=== PATIENT | male | born 1935 | race Caucasian/White ===

== ENCOUNTER 2017-01-16 18:07 | Inpatient (IN) | payer MEDICARE, OTHER ==
[~2017-01-16] VITALS: Ht 167.6 cm; Wt 58.1 kg
[2017-01-16 23:22] VITALS: BP 135/92
[2017-01-17] VITALS (7 sets, daily range): BP systolic 122–155; BP diastolic 68–80
[2017-01-17] MEDS ORDERED: Norco 5mg/325mg tab ORAL PRN (01:45)
[2017-01-17] MEDS ORDERED: Tamsulosin 0.4mg cap ORAL ONE (02:15)
[2017-01-17] MEDS: cefTRIAXone 1 GM in D5W 55 ML IVPB SCH (03:02)
[2017-01-17 05:29] LABS: APPEARANCE,URINE CLOUDY; BILIRUBIN, URINE NEGATIVE (NEGATIVE); GLUCOSE, URINE (UA) NEGATIVE (NEGATIVE); KETONES,URINE NEGATIVE (NEGATIVE); LEUKOCYTE ESTERASE ,URINE 2+ (NEGATIVE); NITRITE,URINE NEGATIVE (NEGATIVE); PH,URINE 5 (4.5-8.0); PROTEIN,URINE 4+ (NEGATIVE); UROBILINOGEN,URINE NORMAL MG/DL (0.0-1.0)
[2017-01-17 05:30] LABS: COLOR,URINE YELLOW
[2017-01-17] MEDS: NovoLOG Insulin Flexpen SUBQ SCH ×4 (06:30→20:47)
[2017-01-17 08:00] LABS: BASOPHILS % (AUTO) 0.4 % (0.0-2.0); EOSINOPHILS % (AUTO) 1.2 % (0.0-3.0); HEMATOCRIT 36.9 % (42.0-52.0); HEMOGLOBIN 12.9 G/DL (14.2-18.0); LYMPHOCYTES % (AUTO) 12.7 % (20.0-45.0); MEAN CORPUSCULAR VOLUME 93 FL (80-99); MONOCYTES % (AUTO) 14.1 % (1.0-10.0); NEUTROPHILS % (AUTO) 71.7 % (45.0-75.0); PLATELET COUNT 169 K/UL (150-450); RED BLOOD COUNT 3.96 M/UL (4.70-6.10); RED CELL DISTRIBUTION WIDTH 11.6 % (11.6-14.8); WHITE BLOOD COUNT 7.2 K/UL (4.8-10.8)
[2017-01-17 08:20] LABS: ALANINE AMINOTRANSFERASE 48 U/L (12-78); ALBUMIN 2.9 G/DL (3.4-5.0); ALBUMIN/GLOBULIN RATIO 0.8 (1.0-2.7); ALKALINE PHOSPHATASE 41 U/L (46-116); ANION GAP 8 mmol/L (5-15); ASPARTATE AMINO TRANSFERASE 38 U/L (15-37); BILIRUBIN,TOTAL 0.6 MG/DL (0.2-1.0); BLOOD UREA NITROGEN 64 mg/dL (7-18); CALCIUM 9.1 MG/DL (8.5-10.1); CARBON DIOXIDE 28 MMOL/L (21-32); CHLORIDE 106 MMOL/L (98-107); CREATININE 2.1 MG/DL (0.55-1.30); PHOSPHORUS 3.8 MG/DL (2.5-4.9); POTASSIUM 3.6 MMOL/L (3.5-5.1); SODIUM 142 MMOL/L (136-145)
[2017-01-17] MEDS: Heparin 5000 units/ml inj SUBQ SCH ×2 (09:05→20:48)
[2017-01-17] MEDS ORDERED: Tubing IV Secondary IV ONE (14:45)
--- NOTE | 2017-01-17 18:45 | Consultation ---
DATE OF CONSULTATION: 01/17/2017 UROLOGY CONSULTATION ATTENDING/CONSULTING PHYSICIAN: Art Campa M.D. CHIEF COMPLAINT/HISTORY OF PRESENT ILLNESS: I was asked by Dr. Campa to evaluate this 81-year-old [facility] gentleman regarding a history of urinary retention with obstructive uropathy secondary to the same. Briefly, the patient was seen in an outside facility with a history of urinary retention and no urine output for approximately one week. He had a Gipson catheter placed with 900 mL of urine output. The patient was discharged home and instructed to follow up with the urologist, but has not been able to do so. Apparently, he disconnected his catheter drainage bag and pulled on the catheter a bit at home. After that time, the catheter stopped draining. He returned to the hospital with worsening abdominal pain and pressure. He was seen there and a catheter was found to be occluded. It was removed and there was difficulty replacing the Gipson catheter in the ER, therefore Urology was consulted and a cystoscopy with placement of a wire was done. A new Gipson catheter was then guided over the wire into the bladder with relief of the patient's urinary retention. He was then transferred to [facility] for further management and care. The patient appears to have a history of previous urinary difficulty and might have been on prostate medication in the past. He apparently has not been taking any of this. There is some barrier both secondary to language and his mental status and most of the information is gathered from the chart. PAST MEDICAL HISTORY: 1. Prostatic hypertrophy with urinary retention. 2. Acute renal insufficiency secondary to obstructive uropathy. 3. Gross hematuria. MEDICATIONS: Please see the chart for current medications and administration details. Briefly, the patient is receiving Flomax, finasteride, and ceftriaxone for antibiotic coverage. ALLERGIES: No known drug allergies. SOCIAL HISTORY: Unremarkable for tobacco, alcohol, or drug use. FAMILY HISTORY: Noncontributory. REVIEW OF SYSTEMS: A 12-system review of systems is essentially unremarkable outside of what is described above. PHYSICAL EXAMINATION: GENERAL: The patient is an elderly gentleman, awake, alert, somewhat oriented, and in no obvious distress. HEENT: NC/AT. EOMI. NECK: Supple. Full range of motion. Oropharynx clear. CHEST: Within normal limits. ABDOMEN: Soft, nontender, and nondistended. EXTREMITIES: Warm and well perfused. No cyanosis, clubbing, or edema. BACK: No CVA tenderness to percussion. NEUROLOGIC: Grossly nonfocal. GENITOURINARY: Reveals a circumcised male phallus with a Gipson catheter in place. There is clear yellow urine output. There are bilateral descended testes and cord structures with no masses or tenderness to palpation. LABORATORY DATA: White blood cell count 7.2, hematocrit 36.9, and platelets 169,000. Sodium 142, potassium 3.6, chloride 106, bicarbonate 28, BUN 64, and creatinine 2.1 down from 3 at an outside facility. Glucose 85. LFTs within normal limits. Urinalysis, specific gravity 1.020 and pH 5.0. Dip test is notable for 4+ protein and 5+ occult blood. Microanalysis with too numerous to count white and red blood cells per high-power field and moderate bacteria seen. DIAGNOSTIC IMAGING: CT scan of the abdomen and pelvis done at the outside facility reveals prostatic hypertrophy only. ASSESSMENT AND PLAN: In summary, the patient is an 81-year-old gentleman with a history of presumed benign prostatic hypertrophy and bladder outlet obstruction with problems urinating in the past. He presented to an outside facility with urinary retention and a Gipson was placed. He then dislodged his Gipson catheter likely into his urethra and the catheter stopped draining. It was removed back at the same facility, but staff had a problem passing the catheter again and Urology was called to perform cystoscopy and placement of catheter and the wire guidance. He was eventually transferred here. Physical exam reveals a Gipson catheter in place with clear yellow urine output. Laboratory data is notable for evidence of microhematuria and possible urinary tract infection. Creatinine, which had peaked at 3 prior to admission has come down to 2. I will attempt to talk to this patient's family and see what we can do to arrange for further follow up and care for him. He should be continued on Flomax and finasteride and if hematuria recurs, his heparin should be held. He should also to be continued on ceftriaxone until urine culture is finalized, at which point, he can be transferred to oral medications encompassing 7 to 10 days of total therapy. I will see the patient back in the office to further manage his benign prostatic hypertrophy and retention. Thank you for allowing me to participate in the care of this nice gentleman. Please do not hesitate to contact me with any questions that you may further have regarding his care. I will be happy to see him with you as needed. Ciaran De La Rosa M.D. DR: ABDIRAHMAN JOB#: [id number] CC:
--- NOTE | 2017-01-17 18:56 | History & Physical ---
History and Physical History & Physicial Dictated for Int Med-Dr Campa no. [id number]. MONAE GARCIA Jan 17, 2017 18:56
--- NOTE | 2017-01-17 18:56 | History & Physical ---
History and Physical History & Physicial Dictated for Int Med-Dr Campa no. [id number]. MONAE GARCIA Jan 17, 2017 18:56
--- NOTE | 2017-01-17 18:56 | History & Physical ---
History and Physical History & Physicial Dictated for Int Med-Dr Campa no. [id number]. MONAE GARCIA Jan 17, 2017 18:56
[2017-01-17] MEDS: Tamsulosin 0.4mg cap ORAL SCH (20:44)
--- NOTE | 2017-01-17 21:52 | Consultation ---
History of Present Illness General Date patient seen: Jan 17, 2017 Chief Complaint: Abdominal pain urinary retention Referring physician: Dr. Holt Reason for Consultation: Abdominal pain Inability to urinate Present Illness HPI 81 yo gentleman with pmhx DM II, BPH and denies all other past medical history presents with complaint of not being able to urinate since yesterday and sudden pelvic and abdominal pains. The patient was evaluated at [facility] emergency room approximately a week ago. The patient had a Cano catheter placed with significant urine output. No infection was found. I was asked to consult on this case from a internal medicine point of view, at this time recommendations include insertion of cano to evacuate bladder and renal ultrasound to rule out hydronephrosis. Allergies: Coded Allergies: No Known Allergies (Unverified , 01/17/17) Medication History Scheduled Cephalexin (Cephalexin), 500 MG ORAL BID Finasteride (Finasteride), 5 MG ORAL DAILY Tamsulosin HCl (Flomax), 0.4 MG ORAL BEDTIME Patient History Healthcare decision maker Resuscitation status Full Code Advanced Directive on File Past Medical/Surgical History Past Medical/Surgical History: (1) Urinary Retention (2) Benign prostatic hyperplasia (3) Urinary retention (4) ATN (acute tubular necrosis) (5) Intractable abdominal pain (6) BPH (benign prostatic hyperplasia) (7) UTI (urinary tract infection) Review of Systems Constitutional: Reports: malaise, weakness Gastrointestinal: Reports: abdominal pain Genitourinary: Reports: retention, urgency Physical Exam General Appearance: moderate distress Lines, tubes and drains: peripheral HEENT: normocephalic, atraumatic, PERRL Neck: non-tender, normal alignment, supple, normal inspection Respiratory/Chest: chest wall non-tender, normal breath sounds, no respiratory distress Breasts: no masses Cardiovascular/Chest: normal peripheral pulses, normal rate, regular rhythm, no JVD Abdomen: normal bowel sounds, non tender, soft, no organomegaly, no mass Genitourinary/Rectal: normal genital exam, normal rectal exam Extremities: normal range of motion, non-tender, normal inspection, no calf tenderness Skin Exam: normal pigmentation, warm/dry 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, no motor/sensory deficits Last 24 Hour Vital Signs Date Time Temp Pulse Resp B/P (MAP) Pulse Ox O2 Delivery O2 Flow Rate FiO2 01/17/17 19:21 99.5 80 18 140/70 95 Room Air 01/17/17 19:17 96.4 84 20 122/80 95 Room Air 01/17/17 15:55 98.6 73 18 133/77 98 Room Air 01/17/17 12:00 98.4 77 18 128/75 98 Room Air 01/17/17 08:00 97.8 90 18 145/73 100 Room Air 01/17/17 03:18 97.6 80 19 125/68 97 Room Air 01/16/17 23:22 97.6 89 18 135/92 95 Room Air Intake and Output 01/17/17 01/18/17 19:00 07:00 Intake Total 990 ml Output Total 900 ml Balance 90 ml Intake Oral 840 ml IV Total 150 ml Output Urine Total 900 ml Laboratory Tests Test 01/17/17 04:15 01/17/17 06:00 Urine Color Yellow Urine Appearance Cloudy Urine pH 5 (4.5-8.0) Urine Specific [place] 1.020 (1.005-1.035) Urine Protein 4+ (NEGATIVE) H Urine Glucose (UA) Negative (NEGATIVE) Urine Ketones Negative (NEGATIVE) Urine Occult Blood 5+ (NEGATIVE) H Urine Nitrite Negative (NEGATIVE) Urine Bilirubin Negative (NEGATIVE) Urine Urobilinogen Normal MG/DL (0.0-1.0) Urine Leukocyte Esterase 2+ (NEGATIVE) H Urine RBC Tntc /HPF (0 - 0) H Urine WBC Tntc /HPF (0 - 0) H Urine Squamous Epithelial Cells Few /LPF (NONE/OCC) Urine Amorphous Sediment Moderate /LPF (NONE) H Urine Bacteria Moderate /HPF (NONE) H White Blood Count 7.2 K/UL (4.8-10.8) Red Blood Count 3.96 M/UL (4.70-6.10) L Hemoglobin 12.9 G/DL (14.2-18.0) L Hematocrit 36.9 % (42.0-52.0) L Mean Corpuscular Volume 93 FL (80-99) Mean Corpuscular Hemoglobin 32.6 PG (27.0-31.0) H Mean Corpuscular Hemoglobin Concent 34.9 G/DL (32.0-36.0) Red Cell Distribution Width 11.6 % (11.6-14.8) Platelet Count 169 K/UL (150-450) Mean Platelet Volume 8.2 FL (6.5-10.1) Neutrophils (%) (Auto) 71.7 % (45.0-75.0) Lymphocytes (%) (Auto) 12.7 % (20.0-45.0) L Monocytes (%) (Auto) 14.1 % (1.0-10.0) H Eosinophils (%) (Auto) 1.2 % (0.0-3.0) Basophils (%) (Auto) 0.4 % (0.0-2.0) Sodium Level 142 MMOL/L (136-145) Potassium Level 3.6 MMOL/L (3.5-5.1) Chloride Level 106 MMOL/L (98-107) Carbon Dioxide Level 28 MMOL/L (21-32) Anion Gap 8 mmol/L (5-15) Blood Urea Nitrogen 64 mg/dL (7-18) H Creatinine 2.1 MG/DL (0.55-1.30) H Estimat Glomerular Filtration Rate mL/min (>60) Glucose Level 85 MG/DL (74-106) Hemoglobin A1c 6.7 % (4.3-6.0) H Calcium Level 9.1 MG/DL (8.5-10.1) Phosphorus Level 3.8 MG/DL (2.5-4.9) Magnesium Level 2.0 MG/DL (1.8-2.4) Total Bilirubin 0.6 MG/DL (0.2-1.0) Aspartate Amino Transf (AST/SGOT) 38 U/L (15-37) H Alanine Aminotransferase (ALT/SGPT) 48 U/L (12-78) Alkaline Phosphatase 41 U/L (46-116) L Total Protein 6.7 G/DL (6.4-8.2) Albumin 2.9 G/DL (3.4-5.0) L Globulin 3.8 g/dL Albumin/Globulin Ratio 0.8 (1.0-2.7) L Height (Feet): 5 Height (Inches): 6.00 Weight (Pounds): 128 Medications Current Medications Medications (Trade) Dose Ordered Sig/Sammy Route PRN Reason Start Time Stop Time Status Last Admin Dose Admin Acetaminophen (Tylenol) 650 mg Q4H PRN ORAL Mild Pain/Temp > 100.5 01/17/17 01:45 02/16/17 01:44 Acetaminophen/ Hydrocodone Bitart ([place] 5/325) 1 tab Q6H PRN ORAL For Pain 01/17/17 01:45 01/24/17 01:44 Ceftriaxone Sodium 1 gm/ Dextrose 55 ml @ 110 mls/hr Q24H IVPB 01/17/17 03:00 01/24/17 02:59 01/17/17 03:02 Dextrose (Dextrose 50%) STAT PRN IV Hypoglycemia 01/17/17 01:45 02/16/17 01:44 Finasteride (Proscar) 5 mg DAILY ORAL 01/17/17 09:00 02/16/17 08:59 01/17/17 09:05 Heparin Sodium (Porcine) (Heparin 5000 units/ml) 5,000 units EVERY 12 HOURS SUBQ 01/17/17 09:00 02/16/17 08:59 01/17/17 20:48 Insulin Aspart (NovoLOG) BEFORE MEALS AND HS SUBQ 01/17/17 06:30 02/16/17 06:29 01/17/17 20:47 Sodium Chloride 1,000 ml @ 75 mls/hr [id number] IV 01/17/17 02:30 02/16/17 02:29 01/17/17 16:06 Tamsulosin HCl (Flomax) 0.4 mg BEDTIME ORAL 01/17/17 21:00 02/16/17 20:59 01/17/17 20:44 Assessment/Plan Status: stable, progressing Assessment/Plan Acute abdominal pain Urinary retention History of recent cano insertion Diabetes Mellitus II Benign prostatic hyperplasia Plan Pain management Renal ultra sound rule out hydronephrosis Cano insertion to evacuate bladder Insulin per sliding scale for hyperglycemia MIC FOWLER Jan 17, 2017 21:52
--- NOTE | 2017-01-17 23:00 | History and Physical Report ---
DATE OF ADMISSION: 01/16/2017 CHIEF COMPLAINT: The patient is an 81-year-old male, who presents with chief complaint of abdominal pain and unable to urinate. HISTORY OF PRESENT ILLNESS: The patient was evaluated at [facility] emergency room approximately a week ago. The patient had a Gipson catheter placed with significant urine output. No infection was found. The patient returned to [facility] emergency room on 01/16/2017. The patient was complaining of abdominal pain and unable to urinate. A Gipson was inserted with difficulty. The patient has significant urine output. Leukocyte esterase is positive. The patient is transferred to [facility] for insurance purposes. The patient is admitted with urinary retention, benign prostatic hypertrophy, and outlet obstruction. The patient denies urinary tract infection. PAST MEDICAL HISTORY: Significant for: 1. Diabetes type 2. 2. Benign prostatic hypertrophy. PAST SURGICAL HISTORY: The patient denies. CURRENT MEDICATIONS: The patient denies. ALLERGIES: No known drug allergies. SOCIAL HISTORY: The patient is . The patient denies tobacco or alcohol use. REVIEW OF SYSTEMS: CONSTITUTIONAL: The patient denies weight loss or weight gain. The patient denies fevers or chills. HEENT: The patient denies ear or throat pain. The patient denies headache. CARDIOVASCULAR: The patient denies palpitations or chest pain. CHEST: The patient denies wheezes or shortness of breath. ABDOMEN: The patient complains of abdominal pain as above. The patient denies nausea, vomiting, diarrhea, or constipation. GENITOURINARY: The patient complains of urinary retention as above. The patient denies dysuria or increased frequency of urination. NEUROMUSCULAR: The patient denies seizures or generalized weakness. PHYSICAL EXAMINATION: VITAL SIGNS: Temperature 97.6, respirations 18, pulse 89, and blood pressure 135/92. GENERAL: The patient is a well-developed, well-nourished white male, in no apparent distress. HEENT: Eyes, pupils are equal and responsive to light and accommodation. Extraocular movements are intact. NECK: Supple without lymphadenopathy. CHEST: Lungs are clear to auscultation bilaterally without wheezes or rales. CARDIOVASCULAR: Regular rhythm and rate. S1 and S2 are normal without murmurs, rubs, or gallops. ABDOMEN: Soft, nontender, and nondistended. Positive bowel sounds. No evidence of hepatosplenomegaly. Currently, no rebound or guarding noted. EXTREMITIES: Negative for clubbing, cyanosis, or edema. RECTAL: Refused. GENITAL: Refused. NEUROLOGIC: Cranial nerves II through XII are grossly intact without focal deficits. Motor strength is 5/5 bilaterally. Deep tendon reflexes are 2+ plantar. LABORATORY STUDIES: WBC 15.2, hemoglobin 15.0, hematocrit 42.8, and platelets 228,000. Sodium 136, potassium 3.7, chloride 96, CO2 25, BUN elevated at 63, and creatinine elevated at 3.16. Urinalysis showed positive leukocyte esterase. WBCs were greater than 100 per high-power field, RBCs were greater than 25 per high-power field. ASSESSMENT: This is an 81-year-old white male with: 1. Abdominal pain. 2. Urinary outlet obstruction. 3. Diabetes type 2. 4. Renal failure. 5. Benign prostatic hypertrophy. TREATMENT: 1. Abdominal pain/urinary outlet obstruction. Urology consultation has been obtained with Dr. De La Rosa. We will follow recommendations of Urology. A Gipson catheter is in place. The urine culture is pending. The patient has been placed empirically on ceftriaxone. Await culture and sensitivity. 2. Diabetes type 2. The patient was admitted. Off antihyperglycemic medication. NovoLog sliding scale has been instituted. 3. Renal failure. Urology consultation has been obtained with Dr. De La Rosa. This may be secondary to urinary outlet obstruction. A Nephrology consultation has been obtained with Dr. Qureshi. 4. Benign prostatic hypertrophy as above. Urology consultation has been obtained with Dr. De La Rosa. The patient has been started on Flomax and Proscar. Easton Holt M.D. DR: PRAVIN JOB#: [id number] CC:
[2017-01-18] VITALS (7 sets, daily range): BP systolic 112–140; BP diastolic 60–82
[2017-01-18] MEDS: cefTRIAXone 1 GM in D5W 55 ML IVPB SCH (03:28)
[2017-01-18] MEDS: NovoLOG Insulin Flexpen SUBQ SCH ×4 (06:23→21:24)
[2017-01-18 07:03] LABS: BASOPHILS % (AUTO) 0.9 % (0.0-2.0); EOSINOPHILS % (AUTO) 3.5 % (0.0-3.0); HEMATOCRIT 33.1 % (42.0-52.0); LYMPHOCYTES % (AUTO) 26.6 % (20.0-45.0); MEAN CORPUSCULAR VOLUME 92 FL (80-99); NEUTROPHILS % (AUTO) 52.1 % (45.0-75.0); PLATELET COUNT 165 K/UL (150-450); RED BLOOD COUNT 3.59 M/UL (4.70-6.10); RED CELL DISTRIBUTION WIDTH 11.1 % (11.6-14.8); WHITE BLOOD COUNT 4.7 K/UL (4.8-10.8)
[2017-01-18 07:04] LABS: ANION GAP 9 mmol/L (5-15); BLOOD UREA NITROGEN 45 mg/dL (7-18); CALCIUM 8.7 MG/DL (8.5-10.1); CARBON DIOXIDE 26 MMOL/L (21-32); CHLORIDE 110 MMOL/L (98-107); CREATININE 1.3 MG/DL (0.55-1.30); POTASSIUM 3.4 MMOL/L (3.5-5.1); SODIUM 145 MMOL/L (136-145)
[2017-01-18] MEDS: Heparin 5000 units/ml inj SUBQ SCH ×2 (08:32→21:25)
--- NOTE | 2017-01-18 10:42 | Diagnostic Imaging Report ---
Indication: Abnormal renal function tests, difficulty urinating Technique: Grayscale and duplex images of the kidneys, retroperitoneum, and bladder were obtained. Comparison:None Findings: Right kidney measures 8.8 cm in length. Left kidney measures 9.7 cm in length. Both kidneys demonstrate normal echogenicity. No hydronephrosis. The right kidney demonstrates a 2.8 cm interpolar region cyst. Normal inferior vena cava. Bladder is empty, contains a Gipson catheter. Impression: Negative for hydronephrosis Of the bladder, containing a Gipson catheter 2.8 cm interpolar region cyst in the right kidney.
--- NOTE | 2017-01-18 16:36 | Pulmonology Progress Note ---
Assessment/Plan Problems: (1) ATN (acute tubular necrosis) (2) Intractable abdominal pain (3) Benign prostatic hyperplasia (4) Urinary retention Assessment/Plan improving IV fluids check electrolytes f/u urology recommendations Subjective ROS Limited/Unobtainable: No Constitutional: Reports: no symptoms HEENT: Repors: no symptoms Respiratory: Reports: no symptoms Allergies: Coded Allergies: No Known Allergies (Unverified , 01/17/17) Objective Last 24 Hour Vital Signs Date Time Temp Pulse Resp B/P (MAP) Pulse Ox O2 Delivery O2 Flow Rate FiO2 01/18/17 16:11 98.0 70 20 125/68 97 Room Air 01/18/17 12:39 97.7 74 20 123/71 97 Room Air 01/18/17 08:15 97.5 72 20 120/62 96 Room Air 01/18/17 03:27 97.9 66 19 138/72 95 Room Air 01/18/17 03:17 97.0 91 20 140/82 97 Room Air 01/17/17 23:21 98.2 80 18 155/75 95 Room Air 01/17/17 19:21 99.5 80 18 140/70 95 Room Air 01/17/17 19:17 96.4 84 20 122/80 95 Room Air Intake and Output 01/18/17 01/19/17 19:00 07:00 Intake Total 535 ml Balance 535 ml Intake Oral 460 ml IV Total 75 ml General Appearance: WD/WN HEENT: normocephalic, atraumatic Respiratory/Chest: chest wall non-tender, lungs clear Cardiovascular: normal peripheral pulses, normal rate Abdomen: normal bowel sounds, no organomegaly Genitourinary: normal external genitalia Skin: no rash 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, 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 Microbiology Date/Time Source Procedure Growth Status 01/17/17 04:15 Indwelling Cath Urine Culture - Preliminary NO GROWTH Resulted Laboratory Tests 01/18/17 05:20: White Blood Count 4.7L, Red Blood Count 3.59L, Hemoglobin 12.0L, Hematocrit 33.1L, Mean Corpuscular Volume 92, Mean Corpuscular Hemoglobin 33.5H, Mean Corpuscular Hemoglobin Concent 36.3H, Red Cell Distribution Width 11.1L, Platelet Count 165, Mean Platelet Volume 7.7, Neutrophils (%) (Auto) 52.1, Lymphocytes (%) (Auto) 26.6, Monocytes (%) (Auto) 17.0H, Eosinophils (%) (Auto) 3.5H, Basophils (%) (Auto) 0.9, Sodium Level 145, Potassium Level 3.4L, Chloride Level 110H, Carbon Dioxide Level 26, Anion Gap 9, Blood Urea Nitrogen 45H, Creatinine 1.3, Estimat Glomerular Filtration Rate , Glucose Level 94, Calcium Level 8.7 Current Medications Medications (Trade) Dose Ordered Sig/Sammy Route PRN Reason Start Time Stop Time Status Last Admin Dose Admin Acetaminophen (Tylenol) 650 mg Q4H PRN ORAL Mild Pain/Temp > 100.5 01/17/17 01:45 02/16/17 01:44 Acetaminophen/ Hydrocodone Bitart ([place] 5/325) 1 tab Q6H PRN ORAL For Pain 01/17/17 01:45 01/24/17 01:44 Ceftriaxone Sodium 1 gm/ Dextrose 55 ml @ 110 mls/hr Q24H IVPB 01/17/17 03:00 01/24/17 02:59 01/18/17 03:28 Dextrose (Dextrose 50%) STAT PRN IV Hypoglycemia 01/17/17 01:45 02/16/17 01:44 Finasteride (Proscar) 5 mg DAILY ORAL 01/17/17 09:00 02/16/17 08:59 01/18/17 08:25 Heparin Sodium (Porcine) (Heparin 5000 units/ml) 5,000 units EVERY 12 HOURS SUBQ 01/17/17 09:00 02/16/17 08:59 01/18/17 08:32 Insulin Aspart (NovoLOG) BEFORE MEALS AND HS SUBQ 01/17/17 06:30 02/16/17 06:29 01/18/17 16:29 Sodium Chloride 1,000 ml @ 75 mls/hr [id number] IV 01/17/17 02:30 02/16/17 02:29 01/18/17 10:43 Tamsulosin HCl (Flomax) 0.4 mg BEDTIME ORAL 01/17/17 21:00 02/16/17 20:59 01/17/17 20:44 MIC FOWLER Jan 18, 2017 16:36
--- NOTE | 2017-01-18 16:36 | Pulmonology Progress Note ---
Assessment/Plan Problems: (1) ATN (acute tubular necrosis) (2) Intractable abdominal pain (3) Benign prostatic hyperplasia (4) Urinary retention Assessment/Plan improving IV fluids check electrolytes f/u urology recommendations Subjective ROS Limited/Unobtainable: No Constitutional: Reports: no symptoms HEENT: Repors: no symptoms Respiratory: Reports: no symptoms Allergies: Coded Allergies: No Known Allergies (Unverified , 01/17/17) Objective Last 24 Hour Vital Signs Date Time Temp Pulse Resp B/P (MAP) Pulse Ox O2 Delivery O2 Flow Rate FiO2 01/18/17 16:11 98.0 70 20 125/68 97 Room Air 01/18/17 12:39 97.7 74 20 123/71 97 Room Air 01/18/17 08:15 97.5 72 20 120/62 96 Room Air 01/18/17 03:27 97.9 66 19 138/72 95 Room Air 01/18/17 03:17 97.0 91 20 140/82 97 Room Air 01/17/17 23:21 98.2 80 18 155/75 95 Room Air 01/17/17 19:21 99.5 80 18 140/70 95 Room Air 01/17/17 19:17 96.4 84 20 122/80 95 Room Air Intake and Output 01/18/17 01/19/17 19:00 07:00 Intake Total 535 ml Balance 535 ml Intake Oral 460 ml IV Total 75 ml General Appearance: WD/WN HEENT: normocephalic, atraumatic Respiratory/Chest: chest wall non-tender, lungs clear Cardiovascular: normal peripheral pulses, normal rate Abdomen: normal bowel sounds, no organomegaly Genitourinary: normal external genitalia Skin: no rash 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, 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 Microbiology Date/Time Source Procedure Growth Status 01/17/17 04:15 Indwelling Cath Urine Culture - Preliminary NO GROWTH Resulted Laboratory Tests 01/18/17 05:20: White Blood Count 4.7L, Red Blood Count 3.59L, Hemoglobin 12.0L, Hematocrit 33.1L, Mean Corpuscular Volume 92, Mean Corpuscular Hemoglobin 33.5H, Mean Corpuscular Hemoglobin Concent 36.3H, Red Cell Distribution Width 11.1L, Platelet Count 165, Mean Platelet Volume 7.7, Neutrophils (%) (Auto) 52.1, Lymphocytes (%) (Auto) 26.6, Monocytes (%) (Auto) 17.0H, Eosinophils (%) (Auto) 3.5H, Basophils (%) (Auto) 0.9, Sodium Level 145, Potassium Level 3.4L, Chloride Level 110H, Carbon Dioxide Level 26, Anion Gap 9, Blood Urea Nitrogen 45H, Creatinine 1.3, Estimat Glomerular Filtration Rate , Glucose Level 94, Calcium Level 8.7 Current Medications Medications (Trade) Dose Ordered Sig/Sammy Route PRN Reason Start Time Stop Time Status Last Admin Dose Admin Acetaminophen (Tylenol) 650 mg Q4H PRN ORAL Mild Pain/Temp > 100.5 01/17/17 01:45 02/16/17 01:44 Acetaminophen/ Hydrocodone Bitart ([place] 5/325) 1 tab Q6H PRN ORAL For Pain 01/17/17 01:45 01/24/17 01:44 Ceftriaxone Sodium 1 gm/ Dextrose 55 ml @ 110 mls/hr Q24H IVPB 01/17/17 03:00 01/24/17 02:59 01/18/17 03:28 Dextrose (Dextrose 50%) STAT PRN IV Hypoglycemia 01/17/17 01:45 02/16/17 01:44 Finasteride (Proscar) 5 mg DAILY ORAL 01/17/17 09:00 02/16/17 08:59 01/18/17 08:25 Heparin Sodium (Porcine) (Heparin 5000 units/ml) 5,000 units EVERY 12 HOURS SUBQ 01/17/17 09:00 02/16/17 08:59 01/18/17 08:32 Insulin Aspart (NovoLOG) BEFORE MEALS AND HS SUBQ 01/17/17 06:30 02/16/17 06:29 01/18/17 16:29 Sodium Chloride 1,000 ml @ 75 mls/hr [id number] IV 01/17/17 02:30 02/16/17 02:29 01/18/17 10:43 Tamsulosin HCl (Flomax) 0.4 mg BEDTIME ORAL 01/17/17 21:00 02/16/17 20:59 01/17/17 20:44 MIC FOWLER Jan 18, 2017 16:36
--- NOTE | 2017-01-18 16:36 | Pulmonology Progress Note ---
Assessment/Plan Problems: (1) ATN (acute tubular necrosis) (2) Intractable abdominal pain (3) Benign prostatic hyperplasia (4) Urinary retention Assessment/Plan improving IV fluids check electrolytes f/u urology recommendations Subjective ROS Limited/Unobtainable: No Constitutional: Reports: no symptoms HEENT: Repors: no symptoms Respiratory: Reports: no symptoms Allergies: Coded Allergies: No Known Allergies (Unverified , 01/17/17) Objective Last 24 Hour Vital Signs Date Time Temp Pulse Resp B/P (MAP) Pulse Ox O2 Delivery O2 Flow Rate FiO2 01/18/17 16:11 98.0 70 20 125/68 97 Room Air 01/18/17 12:39 97.7 74 20 123/71 97 Room Air 01/18/17 08:15 97.5 72 20 120/62 96 Room Air 01/18/17 03:27 97.9 66 19 138/72 95 Room Air 01/18/17 03:17 97.0 91 20 140/82 97 Room Air 01/17/17 23:21 98.2 80 18 155/75 95 Room Air 01/17/17 19:21 99.5 80 18 140/70 95 Room Air 01/17/17 19:17 96.4 84 20 122/80 95 Room Air Intake and Output 01/18/17 01/19/17 19:00 07:00 Intake Total 535 ml Balance 535 ml Intake Oral 460 ml IV Total 75 ml General Appearance: WD/WN HEENT: normocephalic, atraumatic Respiratory/Chest: chest wall non-tender, lungs clear Cardiovascular: normal peripheral pulses, normal rate Abdomen: normal bowel sounds, no organomegaly Genitourinary: normal external genitalia Skin: no rash 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, 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 Microbiology Date/Time Source Procedure Growth Status 01/17/17 04:15 Indwelling Cath Urine Culture - Preliminary NO GROWTH Resulted Laboratory Tests 01/18/17 05:20: White Blood Count 4.7L, Red Blood Count 3.59L, Hemoglobin 12.0L, Hematocrit 33.1L, Mean Corpuscular Volume 92, Mean Corpuscular Hemoglobin 33.5H, Mean Corpuscular Hemoglobin Concent 36.3H, Red Cell Distribution Width 11.1L, Platelet Count 165, Mean Platelet Volume 7.7, Neutrophils (%) (Auto) 52.1, Lymphocytes (%) (Auto) 26.6, Monocytes (%) (Auto) 17.0H, Eosinophils (%) (Auto) 3.5H, Basophils (%) (Auto) 0.9, Sodium Level 145, Potassium Level 3.4L, Chloride Level 110H, Carbon Dioxide Level 26, Anion Gap 9, Blood Urea Nitrogen 45H, Creatinine 1.3, Estimat Glomerular Filtration Rate , Glucose Level 94, Calcium Level 8.7 Current Medications Medications (Trade) Dose Ordered Sig/Sammy Route PRN Reason Start Time Stop Time Status Last Admin Dose Admin Acetaminophen (Tylenol) 650 mg Q4H PRN ORAL Mild Pain/Temp > 100.5 01/17/17 01:45 02/16/17 01:44 Acetaminophen/ Hydrocodone Bitart ([place] 5/325) 1 tab Q6H PRN ORAL For Pain 01/17/17 01:45 01/24/17 01:44 Ceftriaxone Sodium 1 gm/ Dextrose 55 ml @ 110 mls/hr Q24H IVPB 01/17/17 03:00 01/24/17 02:59 01/18/17 03:28 Dextrose (Dextrose 50%) STAT PRN IV Hypoglycemia 01/17/17 01:45 02/16/17 01:44 Finasteride (Proscar) 5 mg DAILY ORAL 01/17/17 09:00 02/16/17 08:59 01/18/17 08:25 Heparin Sodium (Porcine) (Heparin 5000 units/ml) 5,000 units EVERY 12 HOURS SUBQ 01/17/17 09:00 02/16/17 08:59 01/18/17 08:32 Insulin Aspart (NovoLOG) BEFORE MEALS AND HS SUBQ 01/17/17 06:30 02/16/17 06:29 01/18/17 16:29 Sodium Chloride 1,000 ml @ 75 mls/hr [id number] IV 01/17/17 02:30 02/16/17 02:29 01/18/17 10:43 Tamsulosin HCl (Flomax) 0.4 mg BEDTIME ORAL 01/17/17 21:00 02/16/17 20:59 01/17/17 20:44 MIC FOWLER Jan 18, 2017 16:36
--- NOTE | 2017-01-18 17:54 | Internal Med Progress Note ---
Subjective Date of Service: Jan 18, 2017 Physician Name Monae Garcia Attending Physician Art Campa MD Current Medications Medications (Trade) Dose Ordered Sig/Sammy Route PRN Reason Start Time Stop Time Status Last Admin Dose Admin Acetaminophen (Tylenol) 650 mg Q4H PRN ORAL Mild Pain/Temp > 100.5 01/17/17 01:45 02/16/17 01:44 Acetaminophen/ Hydrocodone Bitart ([place] 5/325) 1 tab Q6H PRN ORAL For Pain 01/17/17 01:45 01/24/17 01:44 Ceftriaxone Sodium 1 gm/ Dextrose 55 ml @ 110 mls/hr Q24H IVPB 01/17/17 03:00 01/24/17 02:59 01/18/17 03:28 Dextrose (Dextrose 50%) STAT PRN IV Hypoglycemia 01/17/17 01:45 02/16/17 01:44 Finasteride (Proscar) 5 mg DAILY ORAL 01/17/17 09:00 02/16/17 08:59 01/18/17 08:25 Heparin Sodium (Porcine) (Heparin 5000 units/ml) 5,000 units EVERY 12 HOURS SUBQ 01/17/17 09:00 02/16/17 08:59 01/18/17 08:32 Insulin Aspart (NovoLOG) BEFORE MEALS AND HS SUBQ 01/17/17 06:30 02/16/17 06:29 01/18/17 16:29 Sodium Chloride 1,000 ml @ 75 mls/hr [id number] IV 01/17/17 02:30 02/16/17 02:29 01/18/17 10:43 Tamsulosin HCl (Flomax) 0.4 mg BEDTIME ORAL 01/17/17 21:00 02/16/17 20:59 01/17/17 20:44 Allergies: Coded Allergies: No Known Allergies (Unverified , 01/17/17) ROS Limited/Unobtainable: Yes Subjective 81 YO M admitted woth obstructive uropathy. Cover for Int Daniel-Dr Campa Objective Last Vital Signs Date Time Temp Pulse Resp B/P (MAP) Pulse Ox O2 Delivery O2 Flow Rate FiO2 01/18/17 16:11 98.0 70 20 125/68 97 Room Air General Appearance: WD/WN, no apparent distress, alert EENT: PERRL/EOMI, normal ENT inspection Neck: non-tender, normal alignment, supple, normal inspection Cardiovascular: normal peripheral pulses, normal rate, regular rhythm, no gallop/murmur, no JVD Respiratory/Chest: chest wall non-tender, lungs clear, normal breath sounds, no respiratory distress, no accessory muscle use Abdomen: normal bowel sounds, non tender, soft, no organomegaly, no mass, abnormal bowel sounds Extremities: normal range of motion 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, no motor/sensory deficits Skin: normal pigmentation Laboratory Tests Test 01/18/17 05:20 White Blood Count 4.7 K/UL (4.8-10.8) L Red Blood Count 3.59 M/UL (4.70-6.10) L Hemoglobin 12.0 G/DL (14.2-18.0) L Hematocrit 33.1 % (42.0-52.0) L Mean Corpuscular Volume 92 FL (80-99) Mean Corpuscular Hemoglobin 33.5 PG (27.0-31.0) H Mean Corpuscular Hemoglobin Concent 36.3 G/DL (32.0-36.0) H Red Cell Distribution Width 11.1 % (11.6-14.8) L Platelet Count 165 K/UL (150-450) Mean Platelet Volume 7.7 FL (6.5-10.1) Neutrophils (%) (Auto) 52.1 % (45.0-75.0) Lymphocytes (%) (Auto) 26.6 % (20.0-45.0) Monocytes (%) (Auto) 17.0 % (1.0-10.0) H Eosinophils (%) (Auto) 3.5 % (0.0-3.0) H Basophils (%) (Auto) 0.9 % (0.0-2.0) Sodium Level 145 MMOL/L (136-145) Potassium Level 3.4 MMOL/L (3.5-5.1) L Chloride Level 110 MMOL/L (98-107) H Carbon Dioxide Level 26 MMOL/L (21-32) Anion Gap 9 mmol/L (5-15) Blood Urea Nitrogen 45 mg/dL (7-18) H Creatinine 1.3 MG/DL (0.55-1.30) Estimat Glomerular Filtration Rate mL/min (>60) Glucose Level 94 MG/DL (74-106) Calcium Level 8.7 MG/DL (8.5-10.1) Microbiology Date/Time Source Procedure Growth Status 01/17/17 04:15 Indwelling Cath Urine Culture - Preliminary NO GROWTH Resulted Intake and Output 01/18/17 01/19/17 19:00 07:00 Intake Total 910 ml Balance 910 ml Intake Oral 460 ml IV Total 450 ml Assessment/Plan Problem List: (1) BPH (benign prostatic hyperplasia) Assessment & Plan: Cont flomax and proscar (2) Urinary retention Assessment & Plan: Due to BPH (3) Benign prostatic hyperplasia Assessment & Plan: Will require TURP vs microwave tx. See Urology note. (4) Intractable abdominal pain (5) UTI (urinary tract infection) Assessment & Plan: Continue rocephin Status: progressing MONAE GARCIA Jan 18, 2017 17:54
--- NOTE | 2017-01-18 20:45 | Progress Note ---
DATE: 01/18/2017 UROLOGY PROGRESS NOTE SUBJECTIVE: No genitourinary events overnight. OBJECTIVE: GENERAL: Afebrile. VITAL SIGNS: Stable. ABDOMEN: Soft, nontender, and nondistended. EXTREMITIES: Warm and well perfused. No cyanosis, clubbing, or edema. GENITOURINARY: Gipson catheter in place with clear yellow urine output. LABORATORY DATA: White blood cell count 4.7, hematocrit 33.1, and platelets 165. Sodium 145, potassium 3.4, chloride 110, bicarbonate 26, BUN 45, and creatinine 1.3 down from 2.1 on admission. Glucose 94. Calcium 8.7. ASSESSMENT AND PLAN: 1. 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 2. Resulted in the urinary retention with difficult Gipson catheter placement. 3. Creatinine, which peaked at 3 has now come down to normal. 4. Continue Gipson, Flomax, and finasteride. 5. Message was left with the family for discussion of continuity of care once discharged. 6. Continue antibiotics until the patient can be sent home on oral antibiotics per culture results. 7. Followup in my office for further management of obstructive uropathy. 8. Case was discussed with Dr. Campa and Dr. Holt. Ciaran De La Rosa M.D. DR: JAQUELINE JOB#: [id number] CC:
[2017-01-18] MEDS: Tamsulosin 0.4mg cap ORAL SCH (21:20)
[2017-01-19 03:49] VITALS: BP 140/75
[2017-01-19] MEDS: cefTRIAXone 1 GM in D5W 55 ML IVPB SCH (03:56)
[2017-01-19] MEDS: NovoLOG Insulin Flexpen SUBQ SCH ×4 (06:25→21:35)
[2017-01-19 06:51] LABS: ANION GAP 8 mmol/L (5-15); BLOOD UREA NITROGEN 29 mg/dL (7-18); CALCIUM 8.3 MG/DL (8.5-10.1); CARBON DIOXIDE 27 MMOL/L (21-32); CHLORIDE 110 MMOL/L (98-107); CREATININE 1.1 MG/DL (0.55-1.30); POTASSIUM 3.7 MMOL/L (3.5-5.1); SODIUM 145 MMOL/L (136-145)
[2017-01-19 07:03] LABS: BASOPHILS % (AUTO) 0.8 % (0.0-2.0); EOSINOPHILS % (AUTO) 5.1 % (0.0-3.0); HEMOGLOBIN 11.5 G/DL (14.2-18.0); LYMPHOCYTES % (AUTO) 34.2 % (20.0-45.0); MEAN CORPUSCULAR VOLUME 93 FL (80-99); MONOCYTES % (AUTO) 17.2 % (1.0-10.0); NEUTROPHILS % (AUTO) 42.8 % (45.0-75.0); PLATELET COUNT 164 K/UL (150-450); RED BLOOD COUNT 3.54 M/UL (4.70-6.10); RED CELL DISTRIBUTION WIDTH 11.2 % (11.6-14.8); WHITE BLOOD COUNT 5.1 K/UL (4.8-10.8)
[2017-01-19 08:00] VITALS: BP 146/81
[2017-01-19] MEDS: Heparin 5000 units/ml inj SUBQ SCH ×2 (10:01→21:34)
[2017-01-19 12:00] VITALS: BP 126/72
--- NOTE | 2017-01-19 13:17 | Internal Med Progress Note ---
Subjective Date of Service: Jan 19, 2017 Physician Name Easton Garcia Attending Physician Art Campa MD Current Medications Medications (Trade) Dose Ordered Sig/Sammy Route PRN Reason Start Time Stop Time Status Last Admin Dose Admin Acetaminophen (Tylenol) 650 mg Q4H PRN ORAL Mild Pain/Temp > 100.5 01/17/17 01:45 02/16/17 01:44 Acetaminophen/ Hydrocodone Bitart ([place] 5/325) 1 tab Q6H PRN ORAL For Pain 01/17/17 01:45 01/24/17 01:44 Ceftriaxone Sodium 1 gm/ Dextrose 55 ml @ 110 mls/hr Q24H IVPB 01/17/17 03:00 01/24/17 02:59 01/19/17 03:56 Dextrose (Dextrose 50%) STAT PRN IV Hypoglycemia 01/17/17 01:45 02/16/17 01:44 Finasteride (Proscar) 5 mg DAILY ORAL 01/17/17 09:00 02/16/17 08:59 01/19/17 10:02 Heparin Sodium (Porcine) (Heparin 5000 units/ml) 5,000 units EVERY 12 HOURS SUBQ 01/17/17 09:00 02/16/17 08:59 01/19/17 10:01 Insulin Aspart (NovoLOG) BEFORE MEALS AND HS SUBQ 01/17/17 06:30 02/16/17 06:29 01/19/17 12:31 Sodium Chloride 1,000 ml @ 75 mls/hr [id number] IV 01/17/17 02:30 02/16/17 02:29 01/19/17 10:25 Tamsulosin HCl (Flomax) 0.4 mg BEDTIME ORAL 01/17/17 21:00 02/16/17 20:59 01/18/17 21:20 Allergies: Coded Allergies: No Known Allergies (Unverified , 01/17/17) ROS Limited/Unobtainable: No Constitutional: Reports: no symptoms HEENT: Reports: no symptoms Cardiovascular: Reports: no symptoms Respiratory: Reports: no symptoms Gastrointestinal/Abdominal: Reports: no symptoms Genitourinary: Reports: no symptoms Neurologic/Psychiatric: Reports: no symptoms Subjective 81 YO M admitted woth obstructive uropathy. Cover for Int Med-Dr Campa Objective Last Vital Signs Date Time Temp Pulse Resp B/P (MAP) Pulse Ox O2 Delivery O2 Flow Rate FiO2 01/19/17 12:00 98.2 74 18 126/72 97 Room Air Laboratory Tests Test 01/19/17 05:15 White Blood Count 5.1 K/UL (4.8-10.8) Red Blood Count 3.54 M/UL (4.70-6.10) L Hemoglobin 11.5 G/DL (14.2-18.0) L Hematocrit 33.0 % (42.0-52.0) L Mean Corpuscular Volume 93 FL (80-99) Mean Corpuscular Hemoglobin 32.4 PG (27.0-31.0) H Mean Corpuscular Hemoglobin Concent 34.8 G/DL (32.0-36.0) Red Cell Distribution Width 11.2 % (11.6-14.8) L Platelet Count 164 K/UL (150-450) Mean Platelet Volume 7.0 FL (6.5-10.1) Neutrophils (%) (Auto) 42.8 % (45.0-75.0) L Lymphocytes (%) (Auto) 34.2 % (20.0-45.0) Monocytes (%) (Auto) 17.2 % (1.0-10.0) H Eosinophils (%) (Auto) 5.1 % (0.0-3.0) H Basophils (%) (Auto) 0.8 % (0.0-2.0) Sodium Level 145 MMOL/L (136-145) Potassium Level 3.7 MMOL/L (3.5-5.1) Chloride Level 110 MMOL/L (98-107) H Carbon Dioxide Level 27 MMOL/L (21-32) Anion Gap 8 mmol/L (5-15) Blood Urea Nitrogen 29 mg/dL (7-18) H Creatinine 1.1 MG/DL (0.55-1.30) Estimat Glomerular Filtration Rate mL/min (>60) Glucose Level 111 MG/DL (74-106) H Calcium Level 8.3 MG/DL (8.5-10.1) L Microbiology Date/Time Source Procedure Growth Status 01/17/17 06:15 Blood Blood Culture - Preliminary NO GROWTH AFTER 24 HOURS Resulted 01/17/17 06:00 Blood Blood Culture - Preliminary NO GROWTH AFTER 24 HOURS Resulted 01/17/17 04:15 Indwelling Cath Urine Culture - Preliminary NO GROWTH AFTER 24 HOURS Resulted Objective General Appearance: WD/WN, no apparent distress, alert EENT: PERRL/EOMI, normal ENT inspection Neck: non-tender, normal alignment, supple, normal inspection Cardiovascular: normal peripheral pulses, normal rate, regular rhythm, no gallop/murmur, no JVD Respiratory/Chest: chest wall non-tender, lungs clear, normal breath sounds, no respiratory distress, no accessory muscle use Abdomen: normal bowel sounds, non tender, soft, no organomegaly, no mass, abnormal bowel sounds Extremities: normal range of motion 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 See Urology note. (4) Intractable abdominal pain (5) UTI (urinary tract infection) Assessment & Plan: Continue rocephin Status: progressing Assessment/Plan Discharge home with home health (when arranged) and indwelling cano cath. F/U urology in 1 week EASTON GARCIA Jan 19, 2017 13:17
[2017-01-19 16:00] VITALS: BP 142/75
[2017-01-19 16:30] VITALS: BP 128/73
--- NOTE | 2017-01-19 18:08 | Pulmonology Progress Note ---
Assessment/Plan Problems: (1) Urinary retention (2) ATN (acute tubular necrosis) (3) Intractable abdominal pain (4) Benign prostatic hyperplasia Assessment/Plan bun/creatinine imroving improving IV fluids check electrolytes urology recommendations appreciated Subjective ROS Limited/Unobtainable: No Interval Events: improving Constitutional: Reports: no symptoms HEENT: Repors: no symptoms Allergies: Coded Allergies: No Known Allergies (Unverified , 01/17/17) Objective Last 24 Hour Vital Signs Date Time Temp Pulse Resp B/P (MAP) Pulse Ox O2 Delivery O2 Flow Rate FiO2 01/19/17 16:30 97.8 88 18 128/73 100 Room Air 01/19/17 16:00 97.9 67 18 142/75 97 Room Air 01/19/17 12:00 98.2 74 18 126/72 97 Room Air 01/19/17 08:00 97.3 67 18 146/81 96 Room Air 01/19/17 03:49 98.1 73 20 140/75 96 Room Air 01/19/17 00:10 98.9 01/18/17 23:36 100.2 72 20 112/60 96 Room Air 01/18/17 20:19 98.2 74 20 126/71 95 Room Air General Appearance: WD/WN HEENT: normocephalic, atraumatic Respiratory/Chest: chest wall non-tender, lungs clear Cardiovascular: normal peripheral pulses, normal rate Abdomen: normal bowel sounds, soft, non tender Genitourinary: normal external genitalia 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, 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 Microbiology Date/Time Source Procedure Growth Status 01/17/17 06:15 Blood Blood Culture - Preliminary NO GROWTH AFTER 24 HOURS Resulted 01/17/17 06:00 Blood Blood Culture - Preliminary NO GROWTH AFTER 24 HOURS Resulted 01/17/17 04:15 Indwelling Cath Urine Culture - Preliminary NO GROWTH AFTER 24 HOURS Resulted Laboratory Tests 01/19/17 05:15: White Blood Count 5.1, Red Blood Count 3.54L, Hemoglobin 11.5L, Hematocrit 33.0L , Mean Corpuscular Volume 93, Mean Corpuscular Hemoglobin 32.4H, Mean Corpuscular Hemoglobin Concent 34.8, Red Cell Distribution Width 11.2L, Platelet Count 164, Mean Platelet Volume 7.0, Neutrophils (%) (Auto) 42.8L, Lymphocytes (%) (Auto) 34.2, Monocytes (%) (Auto) 17.2H, Eosinophils (%) (Auto) 5.1H, Basophils (%) (Auto) 0.8, Sodium Level 145, Potassium Level 3.7, Chloride Level 110H, Carbon Dioxide Level 27, Anion Gap 8, Blood Urea Nitrogen 29H, Creatinine 1.1, Estimat Glomerular Filtration Rate , Glucose Level 111H, Calcium Level 8.3L Current Medications Medications (Trade) Dose Ordered Sig/Sammy Route PRN Reason Start Time Stop Time Status Last Admin Dose Admin Acetaminophen (Tylenol) 650 mg Q4H PRN ORAL Mild Pain/Temp > 100.5 01/17/17 01:45 02/16/17 01:44 Acetaminophen/ Hydrocodone Bitart ([place] 5/325) 1 tab Q6H PRN ORAL For Pain 01/17/17 01:45 01/24/17 01:44 Ceftriaxone Sodium 1 gm/ Dextrose 55 ml @ 110 mls/hr Q24H IVPB 01/17/17 03:00 01/24/17 02:59 01/19/17 03:56 Dextrose (Dextrose 50%) STAT PRN IV Hypoglycemia 01/17/17 01:45 02/16/17 01:44 Finasteride (Proscar) 5 mg DAILY ORAL 01/17/17 09:00 02/16/17 08:59 01/19/17 10:02 Heparin Sodium (Porcine) (Heparin 5000 units/ml) 5,000 units EVERY 12 HOURS SUBQ 01/17/17 09:00 02/16/17 08:59 01/19/17 10:01 Insulin Aspart (NovoLOG) BEFORE MEALS AND HS SUBQ 01/17/17 06:30 02/16/17 06:29 01/19/17 12:31 Sodium Chloride 1,000 ml @ 75 mls/hr [id number] IV 01/17/17 02:30 02/16/17 02:29 01/19/17 10:25 Tamsulosin HCl (Flomax) 0.4 mg BEDTIME ORAL 01/17/17 21:00 02/16/17 20:59 01/18/17 21:20 MIC FOWLER Jan 19, 2017 18:08
--- NOTE | 2017-01-19 18:08 | Pulmonology Progress Note ---
Assessment/Plan Problems: (1) Urinary retention (2) ATN (acute tubular necrosis) (3) Intractable abdominal pain (4) Benign prostatic hyperplasia Assessment/Plan bun/creatinine imroving improving IV fluids check electrolytes urology recommendations appreciated Subjective ROS Limited/Unobtainable: No Interval Events: improving Constitutional: Reports: no symptoms HEENT: Repors: no symptoms Allergies: Coded Allergies: No Known Allergies (Unverified , 01/17/17) Objective Last 24 Hour Vital Signs Date Time Temp Pulse Resp B/P (MAP) Pulse Ox O2 Delivery O2 Flow Rate FiO2 01/19/17 16:30 97.8 88 18 128/73 100 Room Air 01/19/17 16:00 97.9 67 18 142/75 97 Room Air 01/19/17 12:00 98.2 74 18 126/72 97 Room Air 01/19/17 08:00 97.3 67 18 146/81 96 Room Air 01/19/17 03:49 98.1 73 20 140/75 96 Room Air 01/19/17 00:10 98.9 01/18/17 23:36 100.2 72 20 112/60 96 Room Air 01/18/17 20:19 98.2 74 20 126/71 95 Room Air General Appearance: WD/WN HEENT: normocephalic, atraumatic Respiratory/Chest: chest wall non-tender, lungs clear Cardiovascular: normal peripheral pulses, normal rate Abdomen: normal bowel sounds, soft, non tender Genitourinary: normal external genitalia 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, 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 Microbiology Date/Time Source Procedure Growth Status 01/17/17 06:15 Blood Blood Culture - Preliminary NO GROWTH AFTER 24 HOURS Resulted 01/17/17 06:00 Blood Blood Culture - Preliminary NO GROWTH AFTER 24 HOURS Resulted 01/17/17 04:15 Indwelling Cath Urine Culture - Preliminary NO GROWTH AFTER 24 HOURS Resulted Laboratory Tests 01/19/17 05:15: White Blood Count 5.1, Red Blood Count 3.54L, Hemoglobin 11.5L, Hematocrit 33.0L , Mean Corpuscular Volume 93, Mean Corpuscular Hemoglobin 32.4H, Mean Corpuscular Hemoglobin Concent 34.8, Red Cell Distribution Width 11.2L, Platelet Count 164, Mean Platelet Volume 7.0, Neutrophils (%) (Auto) 42.8L, Lymphocytes (%) (Auto) 34.2, Monocytes (%) (Auto) 17.2H, Eosinophils (%) (Auto) 5.1H, Basophils (%) (Auto) 0.8, Sodium Level 145, Potassium Level 3.7, Chloride Level 110H, Carbon Dioxide Level 27, Anion Gap 8, Blood Urea Nitrogen 29H, Creatinine 1.1, Estimat Glomerular Filtration Rate , Glucose Level 111H, Calcium Level 8.3L Current Medications Medications (Trade) Dose Ordered Sig/Sammy Route PRN Reason Start Time Stop Time Status Last Admin Dose Admin Acetaminophen (Tylenol) 650 mg Q4H PRN ORAL Mild Pain/Temp > 100.5 01/17/17 01:45 02/16/17 01:44 Acetaminophen/ Hydrocodone Bitart ([place] 5/325) 1 tab Q6H PRN ORAL For Pain 01/17/17 01:45 01/24/17 01:44 Ceftriaxone Sodium 1 gm/ Dextrose 55 ml @ 110 mls/hr Q24H IVPB 01/17/17 03:00 01/24/17 02:59 01/19/17 03:56 Dextrose (Dextrose 50%) STAT PRN IV Hypoglycemia 01/17/17 01:45 02/16/17 01:44 Finasteride (Proscar) 5 mg DAILY ORAL 01/17/17 09:00 02/16/17 08:59 01/19/17 10:02 Heparin Sodium (Porcine) (Heparin 5000 units/ml) 5,000 units EVERY 12 HOURS SUBQ 01/17/17 09:00 02/16/17 08:59 01/19/17 10:01 Insulin Aspart (NovoLOG) BEFORE MEALS AND HS SUBQ 01/17/17 06:30 02/16/17 06:29 01/19/17 12:31 Sodium Chloride 1,000 ml @ 75 mls/hr [id number] IV 01/17/17 02:30 02/16/17 02:29 01/19/17 10:25 Tamsulosin HCl (Flomax) 0.4 mg BEDTIME ORAL 01/17/17 21:00 02/16/17 20:59 01/18/17 21:20 MIC FOWLER Jan 19, 2017 18:08
--- NOTE | 2017-01-19 18:08 | Pulmonology Progress Note ---
Assessment/Plan Problems: (1) Urinary retention (2) ATN (acute tubular necrosis) (3) Intractable abdominal pain (4) Benign prostatic hyperplasia Assessment/Plan bun/creatinine imroving improving IV fluids check electrolytes urology recommendations appreciated Subjective ROS Limited/Unobtainable: No Interval Events: improving Constitutional: Reports: no symptoms HEENT: Repors: no symptoms Allergies: Coded Allergies: No Known Allergies (Unverified , 01/17/17) Objective Last 24 Hour Vital Signs Date Time Temp Pulse Resp B/P (MAP) Pulse Ox O2 Delivery O2 Flow Rate FiO2 01/19/17 16:30 97.8 88 18 128/73 100 Room Air 01/19/17 16:00 97.9 67 18 142/75 97 Room Air 01/19/17 12:00 98.2 74 18 126/72 97 Room Air 01/19/17 08:00 97.3 67 18 146/81 96 Room Air 01/19/17 03:49 98.1 73 20 140/75 96 Room Air 01/19/17 00:10 98.9 01/18/17 23:36 100.2 72 20 112/60 96 Room Air 01/18/17 20:19 98.2 74 20 126/71 95 Room Air General Appearance: WD/WN HEENT: normocephalic, atraumatic Respiratory/Chest: chest wall non-tender, lungs clear Cardiovascular: normal peripheral pulses, normal rate Abdomen: normal bowel sounds, soft, non tender Genitourinary: normal external genitalia 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, 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 Microbiology Date/Time Source Procedure Growth Status 01/17/17 06:15 Blood Blood Culture - Preliminary NO GROWTH AFTER 24 HOURS Resulted 01/17/17 06:00 Blood Blood Culture - Preliminary NO GROWTH AFTER 24 HOURS Resulted 01/17/17 04:15 Indwelling Cath Urine Culture - Preliminary NO GROWTH AFTER 24 HOURS Resulted Laboratory Tests 01/19/17 05:15: White Blood Count 5.1, Red Blood Count 3.54L, Hemoglobin 11.5L, Hematocrit 33.0L , Mean Corpuscular Volume 93, Mean Corpuscular Hemoglobin 32.4H, Mean Corpuscular Hemoglobin Concent 34.8, Red Cell Distribution Width 11.2L, Platelet Count 164, Mean Platelet Volume 7.0, Neutrophils (%) (Auto) 42.8L, Lymphocytes (%) (Auto) 34.2, Monocytes (%) (Auto) 17.2H, Eosinophils (%) (Auto) 5.1H, Basophils (%) (Auto) 0.8, Sodium Level 145, Potassium Level 3.7, Chloride Level 110H, Carbon Dioxide Level 27, Anion Gap 8, Blood Urea Nitrogen 29H, Creatinine 1.1, Estimat Glomerular Filtration Rate , Glucose Level 111H, Calcium Level 8.3L Current Medications Medications (Trade) Dose Ordered Sig/Sammy Route PRN Reason Start Time Stop Time Status Last Admin Dose Admin Acetaminophen (Tylenol) 650 mg Q4H PRN ORAL Mild Pain/Temp > 100.5 01/17/17 01:45 02/16/17 01:44 Acetaminophen/ Hydrocodone Bitart ([place] 5/325) 1 tab Q6H PRN ORAL For Pain 01/17/17 01:45 01/24/17 01:44 Ceftriaxone Sodium 1 gm/ Dextrose 55 ml @ 110 mls/hr Q24H IVPB 01/17/17 03:00 01/24/17 02:59 01/19/17 03:56 Dextrose (Dextrose 50%) STAT PRN IV Hypoglycemia 01/17/17 01:45 02/16/17 01:44 Finasteride (Proscar) 5 mg DAILY ORAL 01/17/17 09:00 02/16/17 08:59 01/19/17 10:02 Heparin Sodium (Porcine) (Heparin 5000 units/ml) 5,000 units EVERY 12 HOURS SUBQ 01/17/17 09:00 02/16/17 08:59 01/19/17 10:01 Insulin Aspart (NovoLOG) BEFORE MEALS AND HS SUBQ 01/17/17 06:30 02/16/17 06:29 01/19/17 12:31 Sodium Chloride 1,000 ml @ 75 mls/hr [id number] IV 01/17/17 02:30 02/16/17 02:29 01/19/17 10:25 Tamsulosin HCl (Flomax) 0.4 mg BEDTIME ORAL 01/17/17 21:00 02/16/17 20:59 01/18/17 21:20 MIC FOWLER Jan 19, 2017 18:08
[2017-01-19 19:35] VITALS: BP 147/83
[2017-01-19] MEDS: Tamsulosin 0.4mg cap ORAL SCH (21:33)
[2017-01-20] VITALS: BP 111/71
[2017-01-20] MEDS: cefTRIAXone 1 GM in D5W 55 ML IVPB SCH (02:21)
[2017-01-20 04:00] VITALS: BP 118/71
[2017-01-20] MEDS: NovoLOG Insulin Flexpen SUBQ SCH ×4 (05:56→21:00)
[2017-01-20 06:45] LABS: BASOPHILS % (AUTO) 0.9 % (0.0-2.0); HEMATOCRIT 32.6 % (42.0-52.0); HEMOGLOBIN 11.6 G/DL (14.2-18.0); LYMPHOCYTES % (AUTO) 35.4 % (20.0-45.0); MEAN CORPUSCULAR VOLUME 92 FL (80-99); MONOCYTES % (AUTO) 13.6 % (1.0-10.0); NEUTROPHILS % (AUTO) 45.1 % (45.0-75.0); PLATELET COUNT 167 K/UL (150-450); RED BLOOD COUNT 3.54 M/UL (4.70-6.10); RED CELL DISTRIBUTION WIDTH 10.8 % (11.6-14.8); WHITE BLOOD COUNT 5.3 K/UL (4.8-10.8)
[2017-01-20 07:04] LABS: ANION GAP 8 mmol/L (5-15); BLOOD UREA NITROGEN 20 mg/dL (7-18); CALCIUM 8.6 MG/DL (8.5-10.1); CARBON DIOXIDE 28 MMOL/L (21-32); CHLORIDE 107 MMOL/L (98-107); CREATININE 0.8 MG/DL (0.55-1.30); POTASSIUM 3.5 MMOL/L (3.5-5.1); SODIUM 143 MMOL/L (136-145)
[2017-01-20 08:00] VITALS: BP 145/75
[2017-01-20] MEDS: Heparin 5000 units/ml inj SUBQ SCH ×2 (09:12→21:00)
[2017-01-20] MEDS ORDERED: Sterile Water Irrig 1000ml IRRIG ONE (10:56)
[2017-01-20] MEDS ORDERED: NS 275ml ONE (10:56)
--- NOTE | 2017-01-20 11:28 | Consultation ---
History of Present Illness General Date patient seen: Jan 20, 2017 Time patient seen: 11:48 Reason for Consultation: uti Present Illness HPI 81 y/o [place]air[place] islander M with hx of DM2, BPH is admitted on 01/17 for abd pain and urinary retention. He had previously presented to [place] 1 week ago with similar symptoms and cano placed and sent home, however returned back to [place] on 01/16. It was found cano was occluded and replacement was attempted without success. He needed urology evaluation and cytoscopy with placement new cano over a wire. patient afebrile,no leukocytosis, but signifiacnt pyuria. ucx neg, bcx NTD. on IV Ceftriaxone Allergies: Coded Allergies: No Known Allergies (Unverified , 01/17/17) Patient History Healthcare decision maker Resuscitation status Full Code Advanced Directive on File Patient History Narrative PMhs: as above SHx: patient is . The patient denies tobacco or alcohol use. Fhx: non contributory Review of Systems All Other Systems: negative except mentioned in HPI Physical Exam Physical Exam Narrative GENERAL: The patient is a well-developed, well-nourished white male, in no apparent distress. HEENT: Eyes, pupils are equal and responsive to light and accommodation.Extraocular movements are intact. NECK: Supple without lymphadenopathy. CHEST: Lungs are clear to auscultation bilaterally without wheezes or rales. CARDIOVASCULAR: Regular rhythm and rate. S1 and S2 are normal withoutmurmurs, rubs, or gallops. ABDOMEN: Soft, nontender, and nondistended. Positive bowel sounds. Noevidence of hepatosplenomegaly. Currently, no rebound or guardingnoted. EXTREMITIES: Negative for clubbing, cyanosis, or edema. NEUROLOGIC: no focal deficits Last 24 Hour Vital Signs Date Time Temp Pulse Resp B/P (MAP) Pulse Ox O2 Delivery O2 Flow Rate FiO2 01/20/17 08:00 97.7 76 20 145/75 97 Room Air 01/20/17 04:00 97.7 69 20 118/71 96 Room Air 01/20/17 00:00 97.7 65 18 111/71 99 Room Air 01/19/17 19:35 97.9 70 20 147/83 95 Room Air 01/19/17 16:30 97.8 88 18 128/73 100 Room Air 01/19/17 16:00 97.9 67 18 142/75 97 Room Air 01/19/17 12:00 98.2 74 18 126/72 97 Room Air Laboratory Tests Test 01/20/17 05:20 White Blood Count 5.3 K/UL (4.8-10.8) Red Blood Count 3.54 M/UL (4.70-6.10) L Hemoglobin 11.6 G/DL (14.2-18.0) L Hematocrit 32.6 % (42.0-52.0) L Mean Corpuscular Volume 92 FL (80-99) Mean Corpuscular Hemoglobin 32.6 PG (27.0-31.0) H Mean Corpuscular Hemoglobin Concent 35.5 G/DL (32.0-36.0) Red Cell Distribution Width 10.8 % (11.6-14.8) L Platelet Count 167 K/UL (150-450) Mean Platelet Volume 7.3 FL (6.5-10.1) Neutrophils (%) (Auto) 45.1 % (45.0-75.0) Lymphocytes (%) (Auto) 35.4 % (20.0-45.0) Monocytes (%) (Auto) 13.6 % (1.0-10.0) H Eosinophils (%) (Auto) 5.0 % (0.0-3.0) H Basophils (%) (Auto) 0.9 % (0.0-2.0) Sodium Level 143 MMOL/L (136-145) Potassium Level 3.5 MMOL/L (3.5-5.1) Chloride Level 107 MMOL/L (98-107) Carbon Dioxide Level 28 MMOL/L (21-32) Anion Gap 8 mmol/L (5-15) Blood Urea Nitrogen 20 mg/dL (7-18) H Creatinine 0.8 MG/DL (0.55-1.30) Estimat Glomerular Filtration Rate mL/min (>60) Glucose Level 97 MG/DL (74-106) Calcium Level 8.6 MG/DL (8.5-10.1) Height (Feet): 5 Height (Inches): 6.00 Weight (Pounds): 128 Medications Current Medications Medications (Trade) Dose Ordered Sig/Sammy Route PRN Reason Start Time Stop Time Status Last Admin Dose Admin Acetaminophen (Tylenol) 650 mg Q4H PRN ORAL Mild Pain/Temp > 100.5 01/17/17 01:45 02/16/17 01:44 Acetaminophen/ Hydrocodone Bitart ([place] 5/325) 1 tab Q6H PRN ORAL For Pain 01/17/17 01:45 01/24/17 01:44 Ceftriaxone Sodium 1 gm/ Dextrose 55 ml @ 110 mls/hr Q24H IVPB 01/17/17 03:00 01/24/17 02:59 01/19/17 03:56 Dextrose (Dextrose 50%) STAT PRN IV Hypoglycemia 01/17/17 01:45 02/16/17 01:44 Finasteride (Proscar) 5 mg DAILY ORAL 01/17/17 09:00 02/16/17 08:59 01/20/17 09:12 Heparin Sodium (Porcine) (Heparin 5000 units/ml) 5,000 units EVERY 12 HOURS SUBQ 01/17/17 09:00 02/16/17 08:59 01/20/17 09:12 Insulin Aspart (NovoLOG) BEFORE MEALS AND HS SUBQ 01/17/17 06:30 02/16/17 06:29 01/19/17 21:35 Sodium Chloride 1,000 ml @ 75 mls/hr [id number] IV 01/17/17 02:30 02/16/17 02:29 01/19/17 10:25 Tamsulosin HCl (Flomax) 0.4 mg BEDTIME ORAL 01/17/17 21:00 02/16/17 20:59 01/19/17 21:33 Assessment/Plan Assessment/Plan Abx: Ceftriaxone 01/17 Assesment: Urinary obstruction Possible UTI -u/a WBC tnct.nit neg, leuk +2; ucx neg -Bcx Afebrile, no leukocytosis BPH PERRI, resolved DM2 Plan: -Switch IV Ceftriaxone #4/7 to PO keflex -f/u cx -Monitor CBC/BMP, temperatures Thank you for this consultation. Will continue to follow along with you. Discussed with Anabella Birmingham M.D. Jan 20, 2017 11:28
[2017-01-20 11:55] VITALS: BP 116/62
[2017-01-20] MEDS: Cephalexin 500mg cap ORAL SCH ×2 (12:56→23:00)
[2017-01-20 16:02] VITALS: BP 125/65
[2017-01-20] MEDS ORDERED: FINASTERIDE5 MG ORAL (16:58)
[2017-01-20] MEDS ORDERED: FLOMAX0.4 MG ORAL (16:58)
[2017-01-20] MEDS ORDERED: KEFLEX500 M1 ORAL (16:58)
--- NOTE | 2017-01-20 17:05 | Internal Med Progress Note ---
Subjective Date of Service: Jan 20, 2017 Physician Name Monae Garcia Attending Physician Art Campa MD Current Medications Medications (Trade) Dose Ordered Sig/Sammy Route PRN Reason Start Time Stop Time Status Last Admin Dose Admin Acetaminophen (Tylenol) 650 mg Q4H PRN ORAL Mild Pain/Temp > 100.5 01/17/17 01:45 02/16/17 01:44 Acetaminophen/ Hydrocodone Bitart ([place] 5/325) 1 tab Q6H PRN ORAL For Pain 01/17/17 01:45 01/24/17 01:44 Cephalexin (Keflex) 500 mg BID ORAL 01/20/17 12:30 01/22/17 23:59 01/20/17 12:56 Dextrose (Dextrose 50%) STAT PRN IV Hypoglycemia 01/17/17 01:45 02/16/17 01:44 Finasteride (Proscar) 5 mg DAILY ORAL 01/17/17 09:00 02/16/17 08:59 01/20/17 09:12 Heparin Sodium (Porcine) (Heparin 5000 units/ml) 5,000 units EVERY 12 HOURS SUBQ 01/17/17 09:00 02/16/17 08:59 01/20/17 09:12 Insulin Aspart (NovoLOG) BEFORE MEALS AND HS SUBQ 01/17/17 06:30 02/16/17 06:29 01/20/17 11:57 Sodium Chloride 1,000 ml @ 75 mls/hr [id number] IV 01/17/17 02:30 02/16/17 02:29 01/19/17 10:25 Tamsulosin HCl (Flomax) 0.4 mg BEDTIME ORAL 01/17/17 21:00 02/16/17 20:59 01/19/17 21:33 Allergies: Coded Allergies: No Known Allergies (Unverified , 01/17/17) ROS Limited/Unobtainable: No Constitutional: Reports: no symptoms HEENT: Reports: no symptoms Cardiovascular: Reports: no symptoms Respiratory: Reports: no symptoms Gastrointestinal/Abdominal: Reports: no symptoms Genitourinary: Reports: no symptoms Neurologic/Psychiatric: Reports: no symptoms Subjective 81 YO M admitted woth obstructive uropathy. Cover for Int Daniel-Dr Campa Objective Last Vital Signs Date Time Temp Pulse Resp B/P (MAP) Pulse Ox O2 Delivery O2 Flow Rate FiO2 01/20/17 16:02 98.1 66 18 125/65 95 Room Air Laboratory Tests Test 01/20/17 05:20 White Blood Count 5.3 K/UL (4.8-10.8) Red Blood Count 3.54 M/UL (4.70-6.10) L Hemoglobin 11.6 G/DL (14.2-18.0) L Hematocrit 32.6 % (42.0-52.0) L Mean Corpuscular Volume 92 FL (80-99) Mean Corpuscular Hemoglobin 32.6 PG (27.0-31.0) H Mean Corpuscular Hemoglobin Concent 35.5 G/DL (32.0-36.0) Red Cell Distribution Width 10.8 % (11.6-14.8) L Platelet Count 167 K/UL (150-450) Mean Platelet Volume 7.3 FL (6.5-10.1) Neutrophils (%) (Auto) 45.1 % (45.0-75.0) Lymphocytes (%) (Auto) 35.4 % (20.0-45.0) Monocytes (%) (Auto) 13.6 % (1.0-10.0) H Eosinophils (%) (Auto) 5.0 % (0.0-3.0) H Basophils (%) (Auto) 0.9 % (0.0-2.0) Sodium Level 143 MMOL/L (136-145) Potassium Level 3.5 MMOL/L (3.5-5.1) Chloride Level 107 MMOL/L (98-107) Carbon Dioxide Level 28 MMOL/L (21-32) Anion Gap 8 mmol/L (5-15) Blood Urea Nitrogen 20 mg/dL (7-18) H Creatinine 0.8 MG/DL (0.55-1.30) Estimat Glomerular Filtration Rate mL/min (>60) Glucose Level 97 MG/DL (74-106) Calcium Level 8.6 MG/DL (8.5-10.1) Objective General Appearance: WD/WN, no apparent distress, alert EENT: PERRL/EOMI, normal ENT inspection Neck: non-tender, normal alignment, supple, normal inspection Cardiovascular: normal peripheral pulses, normal rate, regular rhythm, no gallop/murmur, no JVD Respiratory/Chest: chest wall non-tender, lungs clear, normal breath sounds, no respiratory distress, no accessory muscle use Abdomen: normal bowel sounds, non tender, soft, no organomegaly, no mass, abnormal bowel sounds Extremities: normal range of motion 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 See Urology note. (4) Intractable abdominal pain (5) UTI (urinary tract infection) Assessment & Plan: Continue rocephin Assessment/Plan Discharge home with home health and indwelling cano cath. F/U urology in 1 week. Keflex 500 mg BID X 5 days MONAE GARCIA Jan 20, 2017 17:05
--- NOTE | 2017-01-20 19:23 | Pulmonology Progress Note ---
Assessment/Plan Problems: (1) Urinary retention (2) ATN (acute tubular necrosis) (3) Intractable abdominal pain (4) Benign prostatic hyperplasia Assessment/Plan bun/creatinine imroving improving IV fluids check electrolytes urology recommendations appreciated consider changing abx to po dc planning Subjective ROS Limited/Unobtainable: No Constitutional: Reports: no symptoms HEENT: Repors: no symptoms Respiratory: Reports: no symptoms Allergies: Coded Allergies: No Known Allergies (Unverified , 01/17/17) Objective Last 24 Hour Vital Signs Date Time Temp Pulse Resp B/P (MAP) Pulse Ox O2 Delivery O2 Flow Rate FiO2 01/20/17 16:02 98.1 66 18 125/65 95 Room Air 01/20/17 11:55 98.1 71 19 116/62 Room Air 01/20/17 08:00 97.7 76 20 145/75 97 Room Air 01/20/17 04:00 97.7 69 20 118/71 96 Room Air 01/20/17 00:00 97.7 65 18 111/71 99 Room Air 01/19/17 19:35 97.9 70 20 147/83 95 Room Air Intake and Output 01/20/17 01/21/17 19:00 07:00 Intake Total 360 ml Output Total 550 ml Balance -190 ml Intake Oral 360 ml Output Urine Total 550 ml General Appearance: cachetic HEENT: normocephalic, atraumatic Respiratory/Chest: chest wall non-tender, lungs clear Cardiovascular: normal peripheral pulses, normal rate Abdomen: normal bowel sounds, soft, non tender Genitourinary: normal external genitalia Extremities: no clubbing Skin: no ulcers 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 Laboratory Tests 01/20/17 05:20: White Blood Count 5.3, Red Blood Count 3.54L, Hemoglobin 11.6L, Hematocrit 32.6L , Mean Corpuscular Volume 92, Mean Corpuscular Hemoglobin 32.6H, Mean Corpuscular Hemoglobin Concent 35.5, Red Cell Distribution Width 10.8L, Platelet Count 167, Mean Platelet Volume 7.3, Neutrophils (%) (Auto) 45.1, Lymphocytes (%) (Auto) 35.4, Monocytes (%) (Auto) 13.6H, Eosinophils (%) (Auto) 5.0H, Basophils (%) (Auto) 0.9, Sodium Level 143, Potassium Level 3.5, Chloride Level 107, Carbon Dioxide Level 28, Anion Gap 8, Blood Urea Nitrogen 20H, Creatinine 0.8, Estimat Glomerular Filtration Rate , Glucose Level 97, Calcium Level 8.6 Current Medications Medications (Trade) Dose Ordered Sig/Sammy Route PRN Reason Start Time Stop Time Status Last Admin Dose Admin Acetaminophen (Tylenol) 650 mg Q4H PRN ORAL Mild Pain/Temp > 100.5 01/17/17 01:45 02/16/17 01:44 Acetaminophen/ Hydrocodone Bitart ([place] 5/325) 1 tab Q6H PRN ORAL For Pain 01/17/17 01:45 01/24/17 01:44 Cephalexin (Keflex) 500 mg BID ORAL 01/20/17 12:30 01/22/17 23:59 01/20/17 12:56 Dextrose (Dextrose 50%) STAT PRN IV Hypoglycemia 01/17/17 01:45 02/16/17 01:44 Finasteride (Proscar) 5 mg DAILY ORAL 01/17/17 09:00 02/16/17 08:59 01/20/17 09:12 Heparin Sodium (Porcine) (Heparin 5000 units/ml) 5,000 units EVERY 12 HOURS SUBQ 01/17/17 09:00 02/16/17 08:59 01/20/17 09:12 Insulin Aspart (NovoLOG) BEFORE MEALS AND HS SUBQ 01/17/17 06:30 02/16/17 06:29 01/20/17 11:57 Sodium Chloride 1,000 ml @ 75 mls/hr [id number] IV 01/17/17 02:30 02/16/17 02:29 01/19/17 10:25 Tamsulosin HCl (Flomax) 0.4 mg BEDTIME ORAL 01/17/17 21:00 02/16/17 20:59 01/19/17 21:33 MIC FOWLER Jan 20, 2017 19:23
--- NOTE | 2017-01-20 19:23 | Pulmonology Progress Note ---
Assessment/Plan Problems: (1) Urinary retention (2) ATN (acute tubular necrosis) (3) Intractable abdominal pain (4) Benign prostatic hyperplasia Assessment/Plan bun/creatinine imroving improving IV fluids check electrolytes urology recommendations appreciated consider changing abx to po dc planning Subjective ROS Limited/Unobtainable: No Constitutional: Reports: no symptoms HEENT: Repors: no symptoms Respiratory: Reports: no symptoms Allergies: Coded Allergies: No Known Allergies (Unverified , 01/17/17) Objective Last 24 Hour Vital Signs Date Time Temp Pulse Resp B/P (MAP) Pulse Ox O2 Delivery O2 Flow Rate FiO2 01/20/17 16:02 98.1 66 18 125/65 95 Room Air 01/20/17 11:55 98.1 71 19 116/62 Room Air 01/20/17 08:00 97.7 76 20 145/75 97 Room Air 01/20/17 04:00 97.7 69 20 118/71 96 Room Air 01/20/17 00:00 97.7 65 18 111/71 99 Room Air 01/19/17 19:35 97.9 70 20 147/83 95 Room Air Intake and Output 01/20/17 01/21/17 19:00 07:00 Intake Total 360 ml Output Total 550 ml Balance -190 ml Intake Oral 360 ml Output Urine Total 550 ml General Appearance: cachetic HEENT: normocephalic, atraumatic Respiratory/Chest: chest wall non-tender, lungs clear Cardiovascular: normal peripheral pulses, normal rate Abdomen: normal bowel sounds, soft, non tender Genitourinary: normal external genitalia Extremities: no clubbing Skin: no ulcers 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 Laboratory Tests 01/20/17 05:20: White Blood Count 5.3, Red Blood Count 3.54L, Hemoglobin 11.6L, Hematocrit 32.6L , Mean Corpuscular Volume 92, Mean Corpuscular Hemoglobin 32.6H, Mean Corpuscular Hemoglobin Concent 35.5, Red Cell Distribution Width 10.8L, Platelet Count 167, Mean Platelet Volume 7.3, Neutrophils (%) (Auto) 45.1, Lymphocytes (%) (Auto) 35.4, Monocytes (%) (Auto) 13.6H, Eosinophils (%) (Auto) 5.0H, Basophils (%) (Auto) 0.9, Sodium Level 143, Potassium Level 3.5, Chloride Level 107, Carbon Dioxide Level 28, Anion Gap 8, Blood Urea Nitrogen 20H, Creatinine 0.8, Estimat Glomerular Filtration Rate , Glucose Level 97, Calcium Level 8.6 Current Medications Medications (Trade) Dose Ordered Sig/Sammy Route PRN Reason Start Time Stop Time Status Last Admin Dose Admin Acetaminophen (Tylenol) 650 mg Q4H PRN ORAL Mild Pain/Temp > 100.5 01/17/17 01:45 02/16/17 01:44 Acetaminophen/ Hydrocodone Bitart ([place] 5/325) 1 tab Q6H PRN ORAL For Pain 01/17/17 01:45 01/24/17 01:44 Cephalexin (Keflex) 500 mg BID ORAL 01/20/17 12:30 01/22/17 23:59 01/20/17 12:56 Dextrose (Dextrose 50%) STAT PRN IV Hypoglycemia 01/17/17 01:45 02/16/17 01:44 Finasteride (Proscar) 5 mg DAILY ORAL 01/17/17 09:00 02/16/17 08:59 01/20/17 09:12 Heparin Sodium (Porcine) (Heparin 5000 units/ml) 5,000 units EVERY 12 HOURS SUBQ 01/17/17 09:00 02/16/17 08:59 01/20/17 09:12 Insulin Aspart (NovoLOG) BEFORE MEALS AND HS SUBQ 01/17/17 06:30 02/16/17 06:29 01/20/17 11:57 Sodium Chloride 1,000 ml @ 75 mls/hr [id number] IV 01/17/17 02:30 02/16/17 02:29 01/19/17 10:25 Tamsulosin HCl (Flomax) 0.4 mg BEDTIME ORAL 01/17/17 21:00 02/16/17 20:59 01/19/17 21:33 MIC FOWLER Jan 20, 2017 19:23
--- NOTE | 2017-01-20 19:23 | Pulmonology Progress Note ---
Assessment/Plan Problems: (1) Urinary retention (2) ATN (acute tubular necrosis) (3) Intractable abdominal pain (4) Benign prostatic hyperplasia Assessment/Plan bun/creatinine imroving improving IV fluids check electrolytes urology recommendations appreciated consider changing abx to po dc planning Subjective ROS Limited/Unobtainable: No Constitutional: Reports: no symptoms HEENT: Repors: no symptoms Respiratory: Reports: no symptoms Allergies: Coded Allergies: No Known Allergies (Unverified , 01/17/17) Objective Last 24 Hour Vital Signs Date Time Temp Pulse Resp B/P (MAP) Pulse Ox O2 Delivery O2 Flow Rate FiO2 01/20/17 16:02 98.1 66 18 125/65 95 Room Air 01/20/17 11:55 98.1 71 19 116/62 Room Air 01/20/17 08:00 97.7 76 20 145/75 97 Room Air 01/20/17 04:00 97.7 69 20 118/71 96 Room Air 01/20/17 00:00 97.7 65 18 111/71 99 Room Air 01/19/17 19:35 97.9 70 20 147/83 95 Room Air Intake and Output 01/20/17 01/21/17 19:00 07:00 Intake Total 360 ml Output Total 550 ml Balance -190 ml Intake Oral 360 ml Output Urine Total 550 ml General Appearance: cachetic HEENT: normocephalic, atraumatic Respiratory/Chest: chest wall non-tender, lungs clear Cardiovascular: normal peripheral pulses, normal rate Abdomen: normal bowel sounds, soft, non tender Genitourinary: normal external genitalia Extremities: no clubbing Skin: no ulcers 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 Laboratory Tests 01/20/17 05:20: White Blood Count 5.3, Red Blood Count 3.54L, Hemoglobin 11.6L, Hematocrit 32.6L , Mean Corpuscular Volume 92, Mean Corpuscular Hemoglobin 32.6H, Mean Corpuscular Hemoglobin Concent 35.5, Red Cell Distribution Width 10.8L, Platelet Count 167, Mean Platelet Volume 7.3, Neutrophils (%) (Auto) 45.1, Lymphocytes (%) (Auto) 35.4, Monocytes (%) (Auto) 13.6H, Eosinophils (%) (Auto) 5.0H, Basophils (%) (Auto) 0.9, Sodium Level 143, Potassium Level 3.5, Chloride Level 107, Carbon Dioxide Level 28, Anion Gap 8, Blood Urea Nitrogen 20H, Creatinine 0.8, Estimat Glomerular Filtration Rate , Glucose Level 97, Calcium Level 8.6 Current Medications Medications (Trade) Dose Ordered Sig/Sammy Route PRN Reason Start Time Stop Time Status Last Admin Dose Admin Acetaminophen (Tylenol) 650 mg Q4H PRN ORAL Mild Pain/Temp > 100.5 01/17/17 01:45 02/16/17 01:44 Acetaminophen/ Hydrocodone Bitart ([place] 5/325) 1 tab Q6H PRN ORAL For Pain 01/17/17 01:45 01/24/17 01:44 Cephalexin (Keflex) 500 mg BID ORAL 01/20/17 12:30 01/22/17 23:59 01/20/17 12:56 Dextrose (Dextrose 50%) STAT PRN IV Hypoglycemia 01/17/17 01:45 02/16/17 01:44 Finasteride (Proscar) 5 mg DAILY ORAL 01/17/17 09:00 02/16/17 08:59 01/20/17 09:12 Heparin Sodium (Porcine) (Heparin 5000 units/ml) 5,000 units EVERY 12 HOURS SUBQ 01/17/17 09:00 02/16/17 08:59 01/20/17 09:12 Insulin Aspart (NovoLOG) BEFORE MEALS AND HS SUBQ 01/17/17 06:30 02/16/17 06:29 01/20/17 11:57 Sodium Chloride 1,000 ml @ 75 mls/hr [id number] IV 01/17/17 02:30 02/16/17 02:29 01/19/17 10:25 Tamsulosin HCl (Flomax) 0.4 mg BEDTIME ORAL 01/17/17 21:00 02/16/17 20:59 01/19/17 21:33 MIC FOWLER Jan 20, 2017 19:23
[2017-01-20 20:00] VITALS: BP 140/67
[2017-01-20] MEDS: Tamsulosin 0.4mg cap ORAL SCH (21:17)
[2017-01-21 04:00] VITALS: BP 138/70
[2017-01-21] MEDS: NovoLOG Insulin Flexpen SUBQ SCH ×4 (06:05→21:00)
[2017-01-21 08:00] VITALS: BP 138/76
--- NOTE | 2017-01-21 09:19 | Pulmonology Progress Note ---
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 eval for possible SNF placement after accessing home situation case discussed and evaluated by supervising physician Subjective Allergies: Coded Allergies: No Known Allergies (Unverified , 01/17/17) Subjective patient in the chair no signs of distress patient was not dc last night as ordered apparently no one who can take care of him at home Objective Last 24 Hour Vital Signs Date Time Temp Pulse Resp B/P (MAP) Pulse Ox O2 Delivery O2 Flow Rate FiO2 01/21/17 08:00 98.1 65 18 138/76 96 Room Air 01/21/17 04:00 97.9 69 18 138/70 98 Room Air 01/20/17 20:00 98.4 65 16 140/67 100 Room Air 01/20/17 16:02 98.1 66 18 125/65 95 Room Air 01/20/17 11:55 98.1 71 19 116/62 Room Air General Appearance: no acute distress HEENT: normocephalic, atraumatic, anicteric, mucous membranes moist Respiratory/Chest: lungs clear, normal breath sounds, no respiratory distress Cardiovascular: normal rate, regular rhythm, no JVD Abdomen: normal bowel sounds, soft, non tender, non distended Extremities: no edema, pedal pulses normal Neurologic/Psychiatric: 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, alert, responsive Musculoskeletal: atrophy - BLE Current Medications Medications (Trade) Dose Ordered Sig/Sammy Route PRN Reason Start Time Stop Time Status Last Admin Dose Admin Acetaminophen (Tylenol) 650 mg Q4H PRN ORAL Mild Pain/Temp > 100.5 01/17/17 01:45 02/16/17 01:44 Acetaminophen/ Hydrocodone Bitart ([place] 5/325) 1 tab Q6H PRN ORAL For Pain 01/17/17 01:45 01/24/17 01:44 Cephalexin (Keflex) 500 mg BID ORAL 01/20/17 12:30 01/22/17 23:59 01/20/17 12:56 Dextrose (Dextrose 50%) STAT PRN IV Hypoglycemia 01/17/17 01:45 02/16/17 01:44 Finasteride (Proscar) 5 mg DAILY ORAL 01/17/17 09:00 02/16/17 08:59 01/20/17 09:12 Heparin Sodium (Porcine) (Heparin 5000 units/ml) 5,000 units EVERY 12 HOURS SUBQ 01/17/17 09:00 02/16/17 08:59 01/20/17 09:12 Insulin Aspart (NovoLOG) BEFORE MEALS AND HS SUBQ 01/17/17 06:30 02/16/17 06:29 01/20/17 11:57 Sodium Chloride 1,000 ml @ 75 mls/hr [id number] IV 01/17/17 02:30 02/16/17 02:29 01/19/17 10:25 Tamsulosin HCl (Flomax) 0.4 mg BEDTIME ORAL 01/17/17 21:00 02/16/17 20:59 01/20/17 21:17 [facility]Eleanor NP Jan 21, 2017 09:19
--- NOTE | 2017-01-21 09:19 | Pulmonology Progress Note ---
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 eval for possible SNF placement after accessing home situation case discussed and evaluated by supervising physician Subjective Allergies: Coded Allergies: No Known Allergies (Unverified , 01/17/17) Subjective patient in the chair no signs of distress patient was not dc last night as ordered apparently no one who can take care of him at home Objective Last 24 Hour Vital Signs Date Time Temp Pulse Resp B/P (MAP) Pulse Ox O2 Delivery O2 Flow Rate FiO2 01/21/17 08:00 98.1 65 18 138/76 96 Room Air 01/21/17 04:00 97.9 69 18 138/70 98 Room Air 01/20/17 20:00 98.4 65 16 140/67 100 Room Air 01/20/17 16:02 98.1 66 18 125/65 95 Room Air 01/20/17 11:55 98.1 71 19 116/62 Room Air General Appearance: no acute distress HEENT: normocephalic, atraumatic, anicteric, mucous membranes moist Respiratory/Chest: lungs clear, normal breath sounds, no respiratory distress Cardiovascular: normal rate, regular rhythm, no JVD Abdomen: normal bowel sounds, soft, non tender, non distended Extremities: no edema, pedal pulses normal Neurologic/Psychiatric: 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, alert, responsive Musculoskeletal: atrophy - BLE Current Medications Medications (Trade) Dose Ordered Sig/Sammy Route PRN Reason Start Time Stop Time Status Last Admin Dose Admin Acetaminophen (Tylenol) 650 mg Q4H PRN ORAL Mild Pain/Temp > 100.5 01/17/17 01:45 02/16/17 01:44 Acetaminophen/ Hydrocodone Bitart ([place] 5/325) 1 tab Q6H PRN ORAL For Pain 01/17/17 01:45 01/24/17 01:44 Cephalexin (Keflex) 500 mg BID ORAL 01/20/17 12:30 01/22/17 23:59 01/20/17 12:56 Dextrose (Dextrose 50%) STAT PRN IV Hypoglycemia 01/17/17 01:45 02/16/17 01:44 Finasteride (Proscar) 5 mg DAILY ORAL 01/17/17 09:00 02/16/17 08:59 01/20/17 09:12 Heparin Sodium (Porcine) (Heparin 5000 units/ml) 5,000 units EVERY 12 HOURS SUBQ 01/17/17 09:00 02/16/17 08:59 01/20/17 09:12 Insulin Aspart (NovoLOG) BEFORE MEALS AND HS SUBQ 01/17/17 06:30 02/16/17 06:29 01/20/17 11:57 Sodium Chloride 1,000 ml @ 75 mls/hr [id number] IV 01/17/17 02:30 02/16/17 02:29 01/19/17 10:25 Tamsulosin HCl (Flomax) 0.4 mg BEDTIME ORAL 01/17/17 21:00 02/16/17 20:59 01/20/17 21:17 [facility]anor NP Jan 21, 2017 09:19
--- NOTE | 2017-01-21 09:19 | Pulmonology Progress Note ---
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 ARF intractable abdominal pain possible UTI PLAN OF CARE [facility] floor IVF monitor renal parameters, lytes avoid nephrotoxic replace lytes as needed urology eval appreciated continue [place] abx as per ID and change to oral upon dc fup with urologist as outpt for further management of obstructive uropathy patient was unable to be dc home as ordered (no one to take care of him) dc tool planner eval for possible SNF placement after accessing home situation case discussed and evaluated by supervising physician Subjective Allergies: Coded Allergies: No Known Allergies (Unverified , 01/17/17) Subjective patient in the chair no signs of distress patient was not dc last night as ordered apparently no one who can take care of him at home Objective Last 24 Hour Vital Signs Date Time Temp Pulse Resp B/P (MAP) Pulse Ox O2 Delivery O2 Flow Rate FiO2 01/21/17 08:00 98.1 65 18 138/76 96 Room Air 01/21/17 04:00 97.9 69 18 138/70 98 Room Air 01/20/17 20:00 98.4 65 16 140/67 100 Room Air 01/20/17 16:02 98.1 66 18 125/65 95 Room Air 01/20/17 11:55 98.1 71 19 116/62 Room Air General Appearance: no acute distress HEENT: normocephalic, atraumatic, anicteric, mucous membranes moist Respiratory/Chest: lungs clear, normal breath sounds, no respiratory distress Cardiovascular: normal rate, regular rhythm, no JVD Abdomen: normal bowel sounds, soft, non tender, non distended Extremities: no edema, pedal pulses normal Neurologic/Psychiatric: 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, alert, responsive Musculoskeletal: atrophy - BLE Current Medications Medications (Trade) Dose Ordered Sig/Sammy Route PRN Reason Start Time Stop Time Status Last Admin Dose Admin Acetaminophen (Tylenol) 650 mg Q4H PRN ORAL Mild Pain/Temp > 100.5 01/17/17 01:45 02/16/17 01:44 Acetaminophen/ Hydrocodone Bitart ([place] 5/325) 1 tab Q6H PRN ORAL For Pain 01/17/17 01:45 01/24/17 01:44 Cephalexin (Keflex) 500 mg BID ORAL 01/20/17 12:30 01/22/17 23:59 01/20/17 12:56 Dextrose (Dextrose 50%) STAT PRN IV Hypoglycemia 01/17/17 01:45 02/16/17 01:44 Finasteride (Proscar) 5 mg DAILY ORAL 01/17/17 09:00 02/16/17 08:59 01/20/17 09:12 Heparin Sodium (Porcine) (Heparin 5000 units/ml) 5,000 units EVERY 12 HOURS SUBQ 01/17/17 09:00 02/16/17 08:59 01/20/17 09:12 Insulin Aspart (NovoLOG) BEFORE MEALS AND HS SUBQ 01/17/17 06:30 02/16/17 06:29 01/20/17 11:57 Sodium Chloride 1,000 ml @ 75 mls/hr [id number] IV 01/17/17 02:30 02/16/17 02:29 01/19/17 10:25 Tamsulosin HCl (Flomax) 0.4 mg BEDTIME ORAL 01/17/17 21:00 02/16/17 20:59 01/20/17 21:17 [facility] NP Jan 21, 2017 09:19
--- NOTE | 2017-01-21 09:44 | Infectious Diseases Prog Note ---
Assessment/Plan Assessment/Plan Abx: Ceftriaxone 01/17-01/20 PO Keflex 01/20- Assesment: Urinary obstruction Possible UTI -u/a WBC tnct.nit neg, leuk +2; ucx neg -Bcx NTD Low grade fever x1- resolved no leukocytosis BPH PERRI, resolved DM2 Plan: -Continue PO keflex #5/7 for presumed UTI -s/p 4d Ceftriaxone 01/20 -f/u final Bcx -Monitor CBC/BMP, temperatures Thank you for this consultation. Will continue to follow along with you. Discussed with RN. Subjective Allergies: Coded Allergies: No Known Allergies (Unverified , 01/17/17) Subjective afebrile in >48hrs no leukocytosis patient refused night time dose of keflex Objective Vital Signs Last 24 Hour Vital Signs Date Time Temp Pulse Resp B/P (MAP) Pulse Ox O2 Delivery O2 Flow Rate FiO2 01/21/17 08:00 98.1 65 18 138/76 96 Room Air 01/21/17 04:00 97.9 69 18 138/70 98 Room Air 01/20/17 20:00 98.4 65 16 140/67 100 Room Air 01/20/17 16:02 98.1 66 18 125/65 95 Room Air 01/20/17 11:55 98.1 71 19 116/62 Room Air Height (Feet): 5 Height (Inches): 6.00 Weight (Pounds): 128 Objective GENERAL: The patient is a well-developed, well-nourished white male, in no apparent distress. HEENT: Eyes, pupils are equal and responsive to light and accommodation.Extraocular movements are intact. NECK: Supple without lymphadenopathy. CHEST: Lungs are clear to auscultation bilaterally without wheezes or rales. CARDIOVASCULAR: Regular rhythm and rate. S1 and S2 are normal withoutmurmurs, rubs, or gallops. ABDOMEN: Soft, nontender, and nondistended. Positive bowel sounds. Noevidence of hepatosplenomegaly. Currently, no rebound or guardingnoted. EXTREMITIES: Negative for clubbing, cyanosis, or edema. NEUROLOGIC: no focal deficits reviewed reviewed Current Medications Medications (Trade) Dose Ordered Sig/Sammy Route PRN Reason Start Time Stop Time Status Last Admin Dose Admin Acetaminophen (Tylenol) 650 mg Q4H PRN ORAL Mild Pain/Temp > 100.5 01/17/17 01:45 02/16/17 01:44 Acetaminophen/ Hydrocodone Bitart ([place] 5/325) 1 tab Q6H PRN ORAL For Pain 01/17/17 01:45 01/24/17 01:44 Cephalexin (Keflex) 500 mg BID ORAL 01/20/17 12:30 01/22/17 23:59 01/20/17 12:56 Dextrose (Dextrose 50%) STAT PRN IV Hypoglycemia 01/17/17 01:45 02/16/17 01:44 Finasteride (Proscar) 5 mg DAILY ORAL 01/17/17 09:00 02/16/17 08:59 01/20/17 09:12 Heparin Sodium (Porcine) (Heparin 5000 units/ml) 5,000 units EVERY 12 HOURS SUBQ 01/17/17 09:00 02/16/17 08:59 01/20/17 09:12 Insulin Aspart (NovoLOG) BEFORE MEALS AND HS SUBQ 01/17/17 06:30 02/16/17 06:29 01/20/17 11:57 Sodium Chloride 1,000 ml @ 75 mls/hr [id number] IV 01/17/17 02:30 02/16/17 02:29 01/19/17 10:25 Tamsulosin HCl (Flomax) 0.4 mg BEDTIME ORAL 01/17/17 21:00 02/16/17 20:59 01/20/17 21:17 Anabella Penny M.D. Jan 21, 2017 09:44
[2017-01-21] MEDS: Cephalexin 500mg cap ORAL SCH ×2 (09:46→18:00)
[2017-01-21] MEDS: Heparin 5000 units/ml inj SUBQ SCH ×2 (09:49→21:00)
[2017-01-21 12:00] VITALS: BP 142/65
[2017-01-21 16:00] VITALS: BP 101/62
--- NOTE | 2017-01-21 18:23 | Internal Med Progress Note ---
Subjective Date of Service: Jan 21, 2017 Physician Name Monae Garcia Attending Physician Art Campa MD Current Medications Medications (Trade) Dose Ordered Sig/Sammy Route PRN Reason Start Time Stop Time Status Last Admin Dose Admin Acetaminophen (Tylenol) 650 mg Q4H PRN ORAL Mild Pain/Temp > 100.5 01/17/17 01:45 02/16/17 01:44 Acetaminophen/ Hydrocodone Bitart ([place] 5/325) 1 tab Q6H PRN ORAL For Pain 01/17/17 01:45 01/24/17 01:44 Cephalexin (Keflex) 500 mg BID ORAL 01/20/17 12:30 01/22/17 23:59 01/21/17 09:46 Dextrose (Dextrose 50%) STAT PRN IV Hypoglycemia 01/17/17 01:45 02/16/17 01:44 Finasteride (Proscar) 5 mg DAILY ORAL 01/17/17 09:00 02/16/17 08:59 01/21/17 09:46 Heparin Sodium (Porcine) (Heparin 5000 units/ml) 5,000 units EVERY 12 HOURS SUBQ 01/17/17 09:00 02/16/17 08:59 01/20/17 09:12 Insulin Aspart (NovoLOG) BEFORE MEALS AND HS SUBQ 01/17/17 06:30 02/16/17 06:29 01/20/17 11:57 Sodium Chloride 1,000 ml @ 75 mls/hr [id number] IV 01/17/17 02:30 02/16/17 02:29 01/19/17 10:25 Tamsulosin HCl (Flomax) 0.4 mg BEDTIME ORAL 01/17/17 21:00 02/16/17 20:59 01/20/17 21:17 Allergies: Coded Allergies: No Known Allergies (Unverified , 01/17/17) ROS Limited/Unobtainable: No Constitutional: Reports: no symptoms HEENT: Reports: no symptoms Cardiovascular: Reports: no symptoms Respiratory: Reports: no symptoms Gastrointestinal/Abdominal: Reports: no symptoms Genitourinary: Reports: no symptoms Neurologic/Psychiatric: Reports: no symptoms Subjective 81 YO M admitted woth obstructive uropathy. Cover for Int Daniel-Dr Campa Objective Last Vital Signs Date Time Temp Pulse Resp B/P (MAP) Pulse Ox O2 Delivery O2 Flow Rate FiO2 01/21/17 16:00 98.2 66 17 101/62 95 Room Air Intake and Output 01/21/17 01/22/17 19:00 07:00 Intake Total 500 ml Output Total 1000 ml Balance -500 ml Intake Oral 500 ml Output Urine Total 1000 ml Objective General Appearance: WD/WN, no apparent distress, alert EENT: PERRL/EOMI, normal ENT inspection Neck: non-tender, normal alignment, supple, normal inspection Cardiovascular: normal peripheral pulses, normal rate, regular rhythm, no gallop/murmur, no JVD Respiratory/Chest: chest wall non-tender, lungs clear, normal breath sounds, no respiratory distress, no accessory muscle use Abdomen: normal bowel sounds, non tender, soft, no organomegaly, no mass, abnormal bowel sounds Extremities: normal range of motion Neurologic: 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 See Urology note. (4) Intractable abdominal pain (5) UTI (urinary tract infection) Assessment & Plan: Continue rocephin Assessment/Plan Discharge home with home health and indwelling cano cath. F/U urology in 1 week. Keflex 500 mg BID X 5 days MONAE GARCIA Jan 21, 2017 18:23
--- NOTE | 2017-01-21 18:23 | Internal Med Progress Note ---
Subjective Date of Service: Jan 21, 2017 Physician Name Monae Garcia Attending Physician Art Campa MD Current Medications Medications (Trade) Dose Ordered Sig/Sammy Route PRN Reason Start Time Stop Time Status Last Admin Dose Admin Acetaminophen (Tylenol) 650 mg Q4H PRN ORAL Mild Pain/Temp > 100.5 01/17/17 01:45 02/16/17 01:44 Acetaminophen/ Hydrocodone Bitart ([place] 5/325) 1 tab Q6H PRN ORAL For Pain 01/17/17 01:45 01/24/17 01:44 Cephalexin (Keflex) 500 mg BID ORAL 01/20/17 12:30 01/22/17 23:59 01/21/17 09:46 Dextrose (Dextrose 50%) STAT PRN IV Hypoglycemia 01/17/17 01:45 02/16/17 01:44 Finasteride (Proscar) 5 mg DAILY ORAL 01/17/17 09:00 02/16/17 08:59 01/21/17 09:46 Heparin Sodium (Porcine) (Heparin 5000 units/ml) 5,000 units EVERY 12 HOURS SUBQ 01/17/17 09:00 02/16/17 08:59 01/20/17 09:12 Insulin Aspart (NovoLOG) BEFORE MEALS AND HS SUBQ 01/17/17 06:30 02/16/17 06:29 01/20/17 11:57 Sodium Chloride 1,000 ml @ 75 mls/hr [id number] IV 01/17/17 02:30 02/16/17 02:29 01/19/17 10:25 Tamsulosin HCl (Flomax) 0.4 mg BEDTIME ORAL 01/17/17 21:00 02/16/17 20:59 01/20/17 21:17 Allergies: Coded Allergies: No Known Allergies (Unverified , 01/17/17) ROS Limited/Unobtainable: No Constitutional: Reports: no symptoms HEENT: Reports: no symptoms Cardiovascular: Reports: no symptoms Respiratory: Reports: no symptoms Gastrointestinal/Abdominal: Reports: no symptoms Genitourinary: Reports: no symptoms Neurologic/Psychiatric: Reports: no symptoms Subjective 81 YO M admitted woth obstructive uropathy. Cover for Int Daniel-Dr Campa Objective Last Vital Signs Date Time Temp Pulse Resp B/P (MAP) Pulse Ox O2 Delivery O2 Flow Rate FiO2 01/21/17 16:00 98.2 66 17 101/62 95 Room Air Intake and Output 01/21/17 01/22/17 19:00 07:00 Intake Total 500 ml Output Total 1000 ml Balance -500 ml Intake Oral 500 ml Output Urine Total 1000 ml Objective General Appearance: WD/WN, no apparent distress, alert EENT: PERRL/EOMI, normal ENT inspection Neck: non-tender, normal alignment, supple, normal inspection Cardiovascular: normal peripheral pulses, normal rate, regular rhythm, no gallop/murmur, no JVD Respiratory/Chest: chest wall non-tender, lungs clear, normal breath sounds, no respiratory distress, no accessory muscle use Abdomen: normal bowel sounds, non tender, soft, no organomegaly, no mass, abnormal bowel sounds Extremities: normal range of motion 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 See Urology note. (4) Intractable abdominal pain (5) UTI (urinary tract infection) Assessment & Plan: Continue rocephin Assessment/Plan Discharge home with home health and indwelling cano cath. F/U urology in 1 week. Keflex 500 mg BID X 5 days MONAE GARCIA Jan 21, 2017 18:23
--- NOTE | 2017-01-21 18:23 | Internal Med Progress Note ---
Subjective Date of Service: Jan 21, 2017 Physician Name Monae Garcia Attending Physician Art Campa MD Current Medications Medications (Trade) Dose Ordered Sig/Sammy Route PRN Reason Start Time Stop Time Status Last Admin Dose Admin Acetaminophen (Tylenol) 650 mg Q4H PRN ORAL Mild Pain/Temp > 100.5 01/17/17 01:45 02/16/17 01:44 Acetaminophen/ Hydrocodone Bitart ([place] 5/325) 1 tab Q6H PRN ORAL For Pain 01/17/17 01:45 01/24/17 01:44 Cephalexin (Keflex) 500 mg BID ORAL 01/20/17 12:30 01/22/17 23:59 01/21/17 09:46 Dextrose (Dextrose 50%) STAT PRN IV Hypoglycemia 01/17/17 01:45 02/16/17 01:44 Finasteride (Proscar) 5 mg DAILY ORAL 01/17/17 09:00 02/16/17 08:59 01/21/17 09:46 Heparin Sodium (Porcine) (Heparin 5000 units/ml) 5,000 units EVERY 12 HOURS SUBQ 01/17/17 09:00 02/16/17 08:59 01/20/17 09:12 Insulin Aspart (NovoLOG) BEFORE MEALS AND HS SUBQ 01/17/17 06:30 02/16/17 06:29 01/20/17 11:57 Sodium Chloride 1,000 ml @ 75 mls/hr [id number] IV 01/17/17 02:30 02/16/17 02:29 01/19/17 10:25 Tamsulosin HCl (Flomax) 0.4 mg BEDTIME ORAL 01/17/17 21:00 02/16/17 20:59 01/20/17 21:17 Allergies: Coded Allergies: No Known Allergies (Unverified , 01/17/17) ROS Limited/Unobtainable: No Constitutional: Reports: no symptoms HEENT: Reports: no symptoms Cardiovascular: Reports: no symptoms Respiratory: Reports: no symptoms Gastrointestinal/Abdominal: Reports: no symptoms Genitourinary: Reports: no symptoms Neurologic/Psychiatric: Reports: no symptoms Subjective 81 YO M admitted woth obstructive uropathy. Cover for Int Daniel-Dr Campa Objective Last Vital Signs Date Time Temp Pulse Resp B/P (MAP) Pulse Ox O2 Delivery O2 Flow Rate FiO2 01/21/17 16:00 98.2 66 17 101/62 95 Room Air Intake and Output 01/21/17 01/22/17 19:00 07:00 Intake Total 500 ml Output Total 1000 ml Balance -500 ml Intake Oral 500 ml Output Urine Total 1000 ml Objective General Appearance: WD/WN, no apparent distress, alert EENT: PERRL/EOMI, normal ENT inspection Neck: non-tender, normal alignment, supple, normal inspection Cardiovascular: normal peripheral pulses, normal rate, regular rhythm, no gallop/murmur, no JVD Respiratory/Chest: chest wall non-tender, lungs clear, normal breath sounds, no respiratory distress, no accessory muscle use Abdomen: normal bowel sounds, non tender, soft, no organomegaly, no mass, abnormal bowel sounds Extremities: normal range of motion 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 See Urology note. (4) Intractable abdominal pain (5) UTI (urinary tract infection) Assessment & Plan: Continue rocephin Assessment/Plan Discharge home with home health and indwelling cano cath. F/U urology in 1 week. Keflex 500 mg BID X 5 days MONAE GARCIA Jan 21, 2017 18:23
[2017-01-21 20:00] VITALS: BP 158/68
[2017-01-21] MEDS: Tamsulosin 0.4mg cap ORAL SCH (21:00)
[2017-01-22] VITALS: BP 157/71
[2017-01-22 04:00] VITALS: BP 126/54
[2017-01-22] MEDS: NovoLOG Insulin Flexpen SUBQ SCH ×4 (06:13→21:00)
[2017-01-22 08:00] VITALS: BP 144/84
[2017-01-22] MEDS: Heparin 5000 units/ml inj SUBQ SCH ×2 (09:00→21:00)
[2017-01-22] MEDS: Cephalexin 500mg cap ORAL SCH ×2 (09:15→17:20)
--- NOTE | 2017-01-22 10:16 | Infectious Diseases Prog Note ---
Assessment/Plan Assessment/Plan Abx: Ceftriaxone 01/17-01/20 PO Keflex 01/20- Assesment: Urinary obstruction Possible UTI -u/a WBC tnct.nit neg, leuk +2; ucx neg -Bcx NTD Low grade fever x1- resolved no leukocytosis BPH PERRI, resolved DM2 Plan: -Continue PO keflex #6/7 for presumed UTI -s/p 4d Ceftriaxone 01/20 -f/u final Bcx -Monitor CBC/BMP, temperatures Thank you for this consultation. Will continue to follow along with you. Discussed with RN. Subjective Allergies: Coded Allergies: No Known Allergies (Unverified , 01/17/17) Subjective afebrile in >72hrs no leukocytosis Objective Vital Signs Last 24 Hour Vital Signs Date Time Temp Pulse Resp B/P (MAP) Pulse Ox O2 Delivery O2 Flow Rate FiO2 01/22/17 08:00 97.5 72 18 144/84 97 Room Air 01/22/17 04:00 98.2 77 20 126/54 96 Room Air 01/22/17 00:00 98.4 81 20 157/71 98 Room Air 01/21/17 20:00 98.6 79 20 158/68 96 Room Air 01/21/17 20:00 98.6 79 20 158/68 96 Room Air 01/21/17 16:00 98.2 66 17 101/62 95 Room Air 01/21/17 12:00 97.7 81 18 142/65 95 Room Air Height (Feet): 5 Height (Inches): 6.00 Weight (Pounds): 128 Objective GENERAL: The patient is a well-developed, well-nourished white male, in no apparent distress. HEENT: Eyes, pupils are equal and responsive to light and accommodation.Extraocular movements are intact. NECK: Supple without lymphadenopathy. CHEST: Lungs are clear to auscultation bilaterally without wheezes or rales. CARDIOVASCULAR: Regular rhythm and rate. S1 and S2 are normal withoutmurmurs, rubs, or gallops. ABDOMEN: Soft, nontender, and nondistended. Positive bowel sounds. Noevidence of hepatosplenomegaly. Currently, no rebound or guardingnoted. EXTREMITIES: Negative for clubbing, cyanosis, or edema. NEUROLOGIC: no focal deficits reviewed reviewed Current Medications Medications (Trade) Dose Ordered Sig/Sammy Route PRN Reason Start Time Stop Time Status Last Admin Dose Admin Acetaminophen (Tylenol) 650 mg Q4H PRN ORAL Mild Pain/Temp > 100.5 01/17/17 01:45 02/16/17 01:44 Acetaminophen/ Hydrocodone Bitart ([place] 5/325) 1 tab Q6H PRN ORAL For Pain 01/17/17 01:45 01/24/17 01:44 Cephalexin (Keflex) 500 mg BID ORAL 01/20/17 12:30 01/22/17 23:59 01/22/17 09:15 Dextrose (Dextrose 50%) STAT PRN IV Hypoglycemia 01/17/17 01:45 02/16/17 01:44 Finasteride (Proscar) 5 mg DAILY ORAL 01/17/17 09:00 02/16/17 08:59 01/22/17 09:15 Heparin Sodium (Porcine) (Heparin 5000 units/ml) 5,000 units EVERY 12 HOURS SUBQ 01/17/17 09:00 02/16/17 08:59 01/20/17 09:12 Insulin Aspart (NovoLOG) BEFORE MEALS AND HS SUBQ 01/17/17 06:30 02/16/17 06:29 01/20/17 11:57 Sodium Chloride 1,000 ml @ 75 mls/hr [id number] IV 01/17/17 02:30 02/16/17 02:29 01/19/17 10:25 Tamsulosin HCl (Flomax) 0.4 mg BEDTIME ORAL 01/17/17 21:00 02/16/17 20:59 01/21/17 21:00 Anabella Penny M.D. Jan 22, 2017 10:16
[2017-01-22 12:00] VITALS: BP 146/80
--- NOTE | 2017-01-22 13:18 | Pulmonology Progress Note ---
Assessment/Plan Problems: (1) Urinary retention (2) ATN (acute tubular necrosis) (3) Intractable abdominal pain (4) Benign prostatic hyperplasia Assessment/Plan bun/creatinine imroving improving IV fluids check electrolytes urology recommendations appreciated consider changing abx to po dc planning Subjective Allergies: Coded Allergies: No Known Allergies (Unverified , 01/17/17) Objective Last 24 Hour Vital Signs Date Time Temp Pulse Resp B/P (MAP) Pulse Ox O2 Delivery O2 Flow Rate FiO2 01/22/17 12:00 97.7 83 17 146/80 98 Room Air 01/22/17 08:00 97.5 72 18 144/84 97 Room Air 01/22/17 04:00 98.2 77 20 126/54 96 Room Air 01/22/17 00:00 98.4 81 20 157/71 98 Room Air 01/21/17 20:00 98.6 79 20 158/68 96 Room Air 01/21/17 20:00 98.6 79 20 158/68 96 Room Air 01/21/17 16:00 98.2 66 17 101/62 95 Room Air Current Medications Medications (Trade) Dose Ordered Sig/Sammy Route PRN Reason Start Time Stop Time Status Last Admin Dose Admin Acetaminophen (Tylenol) 650 mg Q4H PRN ORAL Mild Pain/Temp > 100.5 01/17/17 01:45 02/16/17 01:44 Acetaminophen/ Hydrocodone Bitart ([place] 5/325) 1 tab Q6H PRN ORAL For Pain 01/17/17 01:45 01/24/17 01:44 Cephalexin (Keflex) 500 mg BID ORAL 01/20/17 12:30 01/22/17 23:59 01/22/17 09:15 Dextrose (Dextrose 50%) STAT PRN IV Hypoglycemia 01/17/17 01:45 02/16/17 01:44 Finasteride (Proscar) 5 mg DAILY ORAL 01/17/17 09:00 02/16/17 08:59 01/22/17 09:15 Heparin Sodium (Porcine) (Heparin 5000 units/ml) 5,000 units EVERY 12 HOURS SUBQ 01/17/17 09:00 02/16/17 08:59 01/20/17 09:12 Insulin Aspart (NovoLOG) BEFORE MEALS AND HS SUBQ 01/17/17 06:30 02/16/17 06:29 01/20/17 11:57 Sodium Chloride 1,000 ml @ 75 mls/hr [id number] IV 01/17/17 02:30 02/16/17 02:29 01/19/17 10:25 Tamsulosin HCl (Flomax) 0.4 mg BEDTIME ORAL 01/17/17 21:00 02/16/17 20:59 01/21/17 21:00 MIC FOWLER Jan 22, 2017 13:18
--- NOTE | 2017-01-22 13:18 | Pulmonology Progress Note ---
Assessment/Plan Problems: (1) Urinary retention (2) ATN (acute tubular necrosis) (3) Intractable abdominal pain (4) Benign prostatic hyperplasia Assessment/Plan bun/creatinine imroving improving IV fluids check electrolytes urology recommendations appreciated consider changing abx to po dc planning Subjective Allergies: Coded Allergies: No Known Allergies (Unverified , 01/17/17) Objective Last 24 Hour Vital Signs Date Time Temp Pulse Resp B/P (MAP) Pulse Ox O2 Delivery O2 Flow Rate FiO2 01/22/17 12:00 97.7 83 17 146/80 98 Room Air 01/22/17 08:00 97.5 72 18 144/84 97 Room Air 01/22/17 04:00 98.2 77 20 126/54 96 Room Air 01/22/17 00:00 98.4 81 20 157/71 98 Room Air 01/21/17 20:00 98.6 79 20 158/68 96 Room Air 01/21/17 20:00 98.6 79 20 158/68 96 Room Air 01/21/17 16:00 98.2 66 17 101/62 95 Room Air Current Medications Medications (Trade) Dose Ordered Sig/Sammy Route PRN Reason Start Time Stop Time Status Last Admin Dose Admin Acetaminophen (Tylenol) 650 mg Q4H PRN ORAL Mild Pain/Temp > 100.5 01/17/17 01:45 02/16/17 01:44 Acetaminophen/ Hydrocodone Bitart ([place] 5/325) 1 tab Q6H PRN ORAL For Pain 01/17/17 01:45 01/24/17 01:44 Cephalexin (Keflex) 500 mg BID ORAL 01/20/17 12:30 01/22/17 23:59 01/22/17 09:15 Dextrose (Dextrose 50%) STAT PRN IV Hypoglycemia 01/17/17 01:45 02/16/17 01:44 Finasteride (Proscar) 5 mg DAILY ORAL 01/17/17 09:00 02/16/17 08:59 01/22/17 09:15 Heparin Sodium (Porcine) (Heparin 5000 units/ml) 5,000 units EVERY 12 HOURS SUBQ 01/17/17 09:00 02/16/17 08:59 01/20/17 09:12 Insulin Aspart (NovoLOG) BEFORE MEALS AND HS SUBQ 01/17/17 06:30 02/16/17 06:29 01/20/17 11:57 Sodium Chloride 1,000 ml @ 75 mls/hr [id number] IV 01/17/17 02:30 02/16/17 02:29 01/19/17 10:25 Tamsulosin HCl (Flomax) 0.4 mg BEDTIME ORAL 01/17/17 21:00 02/16/17 20:59 01/21/17 21:00 MIC FOWLER Jan 22, 2017 13:18
--- NOTE | 2017-01-22 13:18 | Pulmonology Progress Note ---
Assessment/Plan Problems: (1) Urinary retention (2) ATN (acute tubular necrosis) (3) Intractable abdominal pain (4) Benign prostatic hyperplasia Assessment/Plan bun/creatinine imroving improving IV fluids check electrolytes urology recommendations appreciated consider changing abx to po dc planning Subjective Allergies: Coded Allergies: No Known Allergies (Unverified , 01/17/17) Objective Last 24 Hour Vital Signs Date Time Temp Pulse Resp B/P (MAP) Pulse Ox O2 Delivery O2 Flow Rate FiO2 01/22/17 12:00 97.7 83 17 146/80 98 Room Air 01/22/17 08:00 97.5 72 18 144/84 97 Room Air 01/22/17 04:00 98.2 77 20 126/54 96 Room Air 01/22/17 00:00 98.4 81 20 157/71 98 Room Air 01/21/17 20:00 98.6 79 20 158/68 96 Room Air 01/21/17 20:00 98.6 79 20 158/68 96 Room Air 01/21/17 16:00 98.2 66 17 101/62 95 Room Air Current Medications Medications (Trade) Dose Ordered Sig/Sammy Route PRN Reason Start Time Stop Time Status Last Admin Dose Admin Acetaminophen (Tylenol) 650 mg Q4H PRN ORAL Mild Pain/Temp > 100.5 01/17/17 01:45 02/16/17 01:44 Acetaminophen/ Hydrocodone Bitart ([place] 5/325) 1 tab Q6H PRN ORAL For Pain 01/17/17 01:45 01/24/17 01:44 Cephalexin (Keflex) 500 mg BID ORAL 01/20/17 12:30 01/22/17 23:59 01/22/17 09:15 Dextrose (Dextrose 50%) STAT PRN IV Hypoglycemia 01/17/17 01:45 02/16/17 01:44 Finasteride (Proscar) 5 mg DAILY ORAL 01/17/17 09:00 02/16/17 08:59 01/22/17 09:15 Heparin Sodium (Porcine) (Heparin 5000 units/ml) 5,000 units EVERY 12 HOURS SUBQ 01/17/17 09:00 02/16/17 08:59 01/20/17 09:12 Insulin Aspart (NovoLOG) BEFORE MEALS AND HS SUBQ 01/17/17 06:30 02/16/17 06:29 01/20/17 11:57 Sodium Chloride 1,000 ml @ 75 mls/hr [id number] IV 01/17/17 02:30 02/16/17 02:29 01/19/17 10:25 Tamsulosin HCl (Flomax) 0.4 mg BEDTIME ORAL 01/17/17 21:00 02/16/17 20:59 01/21/17 21:00 MIC FOWLER Jan 22, 2017 13:18
--- NOTE | 2017-01-22 13:58 | Internal Med Progress Note ---
Subjective Date of Service: Jan 22, 2017 Physician Name Easton Garcia Attending Physician Art Campa MD Current Medications Medications (Trade) Dose Ordered Sig/Sammy Route PRN Reason Start Time Stop Time Status Last Admin Dose Admin Acetaminophen (Tylenol) 650 mg Q4H PRN ORAL Mild Pain/Temp > 100.5 01/17/17 01:45 02/16/17 01:44 Acetaminophen/ Hydrocodone Bitart ([place] 5/325) 1 tab Q6H PRN ORAL For Pain 01/17/17 01:45 01/24/17 01:44 Cephalexin (Keflex) 500 mg BID ORAL 01/20/17 12:30 01/22/17 23:59 01/22/17 09:15 Dextrose (Dextrose 50%) STAT PRN IV Hypoglycemia 01/17/17 01:45 02/16/17 01:44 Finasteride (Proscar) 5 mg DAILY ORAL 01/17/17 09:00 02/16/17 08:59 01/22/17 09:15 Heparin Sodium (Porcine) (Heparin 5000 units/ml) 5,000 units EVERY 12 HOURS SUBQ 01/17/17 09:00 02/16/17 08:59 01/20/17 09:12 Insulin Aspart (NovoLOG) BEFORE MEALS AND HS SUBQ 01/17/17 06:30 02/16/17 06:29 01/20/17 11:57 Sodium Chloride 1,000 ml @ 75 mls/hr [id number] IV 01/17/17 02:30 02/16/17 02:29 01/19/17 10:25 Tamsulosin HCl (Flomax) 0.4 mg BEDTIME ORAL 01/17/17 21:00 02/16/17 20:59 01/21/17 21:00 Allergies: Coded Allergies: No Known Allergies (Unverified , 01/17/17) ROS Limited/Unobtainable: No Constitutional: Reports: no symptoms HEENT: Reports: no symptoms Cardiovascular: Reports: no symptoms Respiratory: Reports: no symptoms Gastrointestinal/Abdominal: Reports: no symptoms Genitourinary: Reports: no symptoms Neurologic/Psychiatric: Reports: no symptoms Subjective 81 YO M admitted woth obstructive uropathy. Cover for Int Med-Dr Campa. Await discharge home Objective Last Vital Signs Date Time Temp Pulse Resp B/P (MAP) Pulse Ox O2 Delivery O2 Flow Rate FiO2 01/22/17 12:00 97.7 83 17 146/80 98 Room Air Objective General Appearance: WD/WN, no apparent distress, alert EENT: PERRL/EOMI, normal ENT inspection Neck: non-tender, normal alignment, supple, normal inspection Cardiovascular: normal peripheral pulses, normal rate, regular rhythm, no gallop/murmur, no JVD Respiratory/Chest: chest wall non-tender, lungs clear, normal breath sounds, no respiratory distress, no accessory muscle use Abdomen: normal bowel sounds, non tender, soft, no organomegaly, no mass, abnormal bowel sounds Extremities: normal range of motion 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 See Urology note. (4) Intractable abdominal pain (5) UTI (urinary tract infection) Assessment & Plan: Continue rocephin Status: not improved Assessment/Plan Discharge home with home health and indwelling cano cath. F/U urology in 1 week. Keflex 500 mg BID X 5 days EASTON GARCIA Jan 22, 2017 13:58
--- NOTE | 2017-01-22 13:58 | Internal Med Progress Note ---
Subjective Date of Service: Jan 22, 2017 Physician Name Easton Garcia Attending Physician Art Campa MD Current Medications Medications (Trade) Dose Ordered Sig/Sammy Route PRN Reason Start Time Stop Time Status Last Admin Dose Admin Acetaminophen (Tylenol) 650 mg Q4H PRN ORAL Mild Pain/Temp > 100.5 01/17/17 01:45 02/16/17 01:44 Acetaminophen/ Hydrocodone Bitart ([place] 5/325) 1 tab Q6H PRN ORAL For Pain 01/17/17 01:45 01/24/17 01:44 Cephalexin (Keflex) 500 mg BID ORAL 01/20/17 12:30 01/22/17 23:59 01/22/17 09:15 Dextrose (Dextrose 50%) STAT PRN IV Hypoglycemia 01/17/17 01:45 02/16/17 01:44 Finasteride (Proscar) 5 mg DAILY ORAL 01/17/17 09:00 02/16/17 08:59 01/22/17 09:15 Heparin Sodium (Porcine) (Heparin 5000 units/ml) 5,000 units EVERY 12 HOURS SUBQ 01/17/17 09:00 02/16/17 08:59 01/20/17 09:12 Insulin Aspart (NovoLOG) BEFORE MEALS AND HS SUBQ 01/17/17 06:30 02/16/17 06:29 01/20/17 11:57 Sodium Chloride 1,000 ml @ 75 mls/hr [id number] IV 01/17/17 02:30 02/16/17 02:29 01/19/17 10:25 Tamsulosin HCl (Flomax) 0.4 mg BEDTIME ORAL 01/17/17 21:00 02/16/17 20:59 01/21/17 21:00 Allergies: Coded Allergies: No Known Allergies (Unverified , 01/17/17) ROS Limited/Unobtainable: No Constitutional: Reports: no symptoms HEENT: Reports: no symptoms Cardiovascular: Reports: no symptoms Respiratory: Reports: no symptoms Gastrointestinal/Abdominal: Reports: no symptoms Genitourinary: Reports: no symptoms Neurologic/Psychiatric: Reports: no symptoms Subjective 81 YO M admitted woth obstructive uropathy. Cover for Int Med-Dr Campa. Await discharge home Objective Last Vital Signs Date Time Temp Pulse Resp B/P (MAP) Pulse Ox O2 Delivery O2 Flow Rate FiO2 01/22/17 12:00 97.7 83 17 146/80 98 Room Air Objective General Appearance: WD/WN, no apparent distress, alert EENT: PERRL/EOMI, normal ENT inspection Neck: non-tender, normal alignment, supple, normal inspection Cardiovascular: normal peripheral pulses, normal rate, regular rhythm, no gallop/murmur, no JVD Respiratory/Chest: chest wall non-tender, lungs clear, normal breath sounds, no respiratory distress, no accessory muscle use Abdomen: normal bowel sounds, non tender, soft, no organomegaly, no mass, abnormal bowel sounds Extremities: normal range of motion 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 See Urology note. (4) Intractable abdominal pain (5) UTI (urinary tract infection) Assessment & Plan: Continue rocephin Status: not improved Assessment/Plan Discharge home with home health and indwelling cano cath. F/U urology in 1 week. Keflex 500 mg BID X 5 days EASTON GARCIA Jan 22, 2017 13:58
--- NOTE | 2017-01-22 13:58 | Internal Med Progress Note ---
Subjective Date of Service: Jan 22, 2017 Physician Name Easton Garcia Attending Physician Art Campa MD Current Medications Medications (Trade) Dose Ordered Sig/Sammy Route PRN Reason Start Time Stop Time Status Last Admin Dose Admin Acetaminophen (Tylenol) 650 mg Q4H PRN ORAL Mild Pain/Temp > 100.5 01/17/17 01:45 02/16/17 01:44 Acetaminophen/ Hydrocodone Bitart ([place] 5/325) 1 tab Q6H PRN ORAL For Pain 01/17/17 01:45 01/24/17 01:44 Cephalexin (Keflex) 500 mg BID ORAL 01/20/17 12:30 01/22/17 23:59 01/22/17 09:15 Dextrose (Dextrose 50%) STAT PRN IV Hypoglycemia 01/17/17 01:45 02/16/17 01:44 Finasteride (Proscar) 5 mg DAILY ORAL 01/17/17 09:00 02/16/17 08:59 01/22/17 09:15 Heparin Sodium (Porcine) (Heparin 5000 units/ml) 5,000 units EVERY 12 HOURS SUBQ 01/17/17 09:00 02/16/17 08:59 01/20/17 09:12 Insulin Aspart (NovoLOG) BEFORE MEALS AND HS SUBQ 01/17/17 06:30 02/16/17 06:29 01/20/17 11:57 Sodium Chloride 1,000 ml @ 75 mls/hr [id number] IV 01/17/17 02:30 02/16/17 02:29 01/19/17 10:25 Tamsulosin HCl (Flomax) 0.4 mg BEDTIME ORAL 01/17/17 21:00 02/16/17 20:59 01/21/17 21:00 Allergies: Coded Allergies: No Known Allergies (Unverified , 01/17/17) ROS Limited/Unobtainable: No Constitutional: Reports: no symptoms HEENT: Reports: no symptoms Cardiovascular: Reports: no symptoms Respiratory: Reports: no symptoms Gastrointestinal/Abdominal: Reports: no symptoms Genitourinary: Reports: no symptoms Neurologic/Psychiatric: Reports: no symptoms Subjective 81 YO M admitted woth obstructive uropathy. Cover for Int Med-Dr Campa. Await discharge home Objective Last Vital Signs Date Time Temp Pulse Resp B/P (MAP) Pulse Ox O2 Delivery O2 Flow Rate FiO2 01/22/17 12:00 97.7 83 17 146/80 98 Room Air Objective General Appearance: WD/WN, no apparent distress, alert EENT: PERRL/EOMI, normal ENT inspection Neck: non-tender, normal alignment, supple, normal inspection Cardiovascular: normal peripheral pulses, normal rate, regular rhythm, no gallop/murmur, no JVD Respiratory/Chest: chest wall non-tender, lungs clear, normal breath sounds, no respiratory distress, no accessory muscle use Abdomen: normal bowel sounds, non tender, soft, no organomegaly, no mass, abnormal bowel sounds Extremities: normal range of motion Neurologic: 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 See Urology note. (4) Intractable abdominal pain (5) UTI (urinary tract infection) Assessment & Plan: Continue rocephin Status: not improved Assessment/Plan Discharge home with home health and indwelling cano cath. F/U urology in 1 week. Keflex 500 mg BID X 5 days EASTON GARCIA Jan 22, 2017 13:58
[2017-01-22 16:00] VITALS: BP 126/71
[2017-01-22 20:00] VITALS: BP 124/67
[2017-01-22] MEDS: Tamsulosin 0.4mg cap ORAL SCH (20:54)
[2017-01-23] VITALS: BP 127/71
[2017-01-23 04:00] VITALS: BP 145/85
[2017-01-23] MEDS: NovoLOG Insulin Flexpen SUBQ SCH ×2 (06:17→11:56)
[2017-01-23] MEDS: Heparin 5000 units/ml inj SUBQ SCH (08:09)
[2017-01-23 08:41] VITALS: BP 130/72
[2017-01-23 11:59] VITALS: BP 126/69
--- NOTE | 2017-01-23 16:25 | Internal Med Progress Note ---
Subjective Date of Service: Jan 23, 2017 Physician Name Easton Garcia Attending Physician Art Campa MD Allergies: Coded Allergies: No Known Allergies (Unverified , 01/17/17) ROS Limited/Unobtainable: No Constitutional: Reports: no symptoms HEENT: Reports: no symptoms Cardiovascular: Reports: no symptoms Respiratory: Reports: no symptoms Gastrointestinal/Abdominal: Reports: no symptoms Genitourinary: Reports: no symptoms Neurologic/Psychiatric: Reports: no symptoms Subjective 81 YO M admitted woth obstructive uropathy. Cover for Int Med-Dr Campa. Await discharge home today Objective Last Vital Signs Date Time Temp Pulse Resp B/P (MAP) Pulse Ox O2 Delivery O2 Flow Rate FiO2 01/23/17 11:59 98.0 76 20 126/69 95 Room Air Intake and Output 01/23/17 01/24/17 19:00 07:00 Intake Total 360 ml Balance 360 ml Intake Oral 360 ml Objective General Appearance: WD/WN, no apparent distress, alert EENT: PERRL/EOMI, normal ENT inspection Neck: non-tender, normal alignment, supple, normal inspection Cardiovascular: normal peripheral pulses, normal rate, regular rhythm, no gallop/murmur, no JVD Respiratory/Chest: chest wall non-tender, lungs clear, normal breath sounds, no respiratory distress, no accessory muscle use Abdomen: normal bowel sounds, non tender, soft, no organomegaly, no mass, abnormal bowel sounds Extremities: normal range of motion Neurologic: 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 See Urology note. (4) Intractable abdominal pain (5) UTI (urinary tract infection) Assessment & Plan: Continue rocephin Assessment/Plan Discharge home today with home health and indwelling cano cath. F/U urology in 1 week. Keflex 500 mg BID X 5 days EASTON GARCIA Jan 23, 2017 16:25
--- NOTE | 2017-01-23 22:23 | Pulmonology Progress Note ---
Assessment/Plan Problems: (1) Urinary retention (2) ATN (acute tubular necrosis) (3) Intractable abdominal pain (4) Benign prostatic hyperplasia Assessment/Plan bun/creatinine imroving improving IV fluids check electrolytes urology recommendations appreciated consider changing abx to po dc planning Subjective Allergies: Coded Allergies: No Known Allergies (Unverified , 01/17/17) Objective Last 24 Hour Vital Signs Date Time Temp Pulse Resp B/P (MAP) Pulse Ox O2 Delivery O2 Flow Rate FiO2 01/23/17 11:59 98.0 76 20 126/69 95 Room Air 01/23/17 08:41 98.2 74 20 130/72 95 Room Air 01/23/17 04:00 98.6 75 18 145/85 98 Room Air 01/23/17 00:00 97.9 71 18 127/71 97 Room Air Intake and Output 01/23/17 01/24/17 19:00 07:00 Intake Total 360 ml Balance 360 ml Intake Oral 360 ml MIC FOWLER Jan 23, 2017 22:23
--- NOTE | 2017-01-24 12:11 | Discharge Summary ---
Discharge Summary Hospital Course Date of Admission Jan 16, 2017 at 21:37 Date of Discharge Jan 23, 2017 at 15:50 Admitting Diagnosis KANCHAN López is a 81 year old male who was admitted on Jan 16, 2017 at 21: 37 for Urinary Retention Hospital Course dc summary #[id number] Discharge Medications New Medications: Cephalexin (Cephalexin) 500 Mg Tablet 500 MG ORAL BID for 5 Days, TAB Finasteride (Finasteride) 5 Mg Tablet 5 MG ORAL DAILY for 30 Days, TAB Tamsulosin HCl (Flomax) 0.4 Mg Cap.er.24h 0.4 MG ORAL BEDTIME for 30 Days, CAP Discharge Condition Upon Discharge: stable Discharge Disposition Patient was discharged home with services Discharge Diagnoses: Discharge Instructions Discharge Instructions Special Instructions I have been assigned to complete a D/C Summary on this account. I was not involved in the patient management Eleanor Hager NP (Vanchtein) Jan 24, 2017 12:11
--- NOTE | 2017-01-24 12:11 | Discharge Summary ---
Discharge Summary Hospital Course Date of Admission Jan 16, 2017 at 21:37 Date of Discharge Jan 23, 2017 at 15:50 Admitting Diagnosis KANCHAN López is a 81 year old male who was admitted on Jan 16, 2017 at 21: 37 for Urinary Retention Hospital Course dc summary #[id number] Discharge Medications New Medications: Cephalexin (Cephalexin) 500 Mg Tablet 500 MG ORAL BID for 5 Days, TAB Finasteride (Finasteride) 5 Mg Tablet 5 MG ORAL DAILY for 30 Days, TAB Tamsulosin HCl (Flomax) 0.4 Mg Cap.er.24h 0.4 MG ORAL BEDTIME for 30 Days, CAP Discharge Condition Upon Discharge: stable Discharge Disposition Patient was discharged home with services Discharge Diagnoses: Discharge Instructions Discharge Instructions Special Instructions I have been assigned to complete a D/C Summary on this account. I was not involved in the patient management Eleanor Hagre NP (Vanchtein) Jan 24, 2017 12:11
--- NOTE | 2017-01-24 12:11 | Discharge Summary ---
Discharge Summary Hospital Course Date of Admission Jan 16, 2017 at 21:37 Date of Discharge Jan 23, 2017 at 15:50 Admitting Diagnosis KANCHAN López is a 81 year old male who was admitted on Jan 16, 2017 at 21: 37 for Urinary Retention Hospital Course dc summary #[id number] Discharge Medications New Medications: Cephalexin (Cephalexin) 500 Mg Tablet 500 MG ORAL BID for 5 Days, TAB Finasteride (Finasteride) 5 Mg Tablet 5 MG ORAL DAILY for 30 Days, TAB Tamsulosin HCl (Flomax) 0.4 Mg Cap.er.24h 0.4 MG ORAL BEDTIME for 30 Days, CAP Discharge Condition Upon Discharge: stable Discharge Disposition Patient was discharged home with services Discharge Diagnoses: Discharge Instructions Discharge Instructions Special Instructions I have been assigned to complete a D/C Summary on this account. I was not involved in the patient management Eleanor Hager NP (Vanchtein) Jan 24, 2017 12:11
--- NOTE | 2017-01-24 18:15 | Discharge Summary 2 SIG ---
DATE OF ADMISSION: 01/16/2017 DATE OF DISCHARGE: 01/23/2017 REASON FOR ADMISSION: 81-year-old male with a history of diabetes and BPH, presented with a chief complaint of abdominal pain and inability to urinate. The patient was initially evaluated at [facility] emergency room about a week ago. At that time, urinary retention was relieved with catheterization with significant urine output. No infection was found at that time. The patient returned to [facility] emergency room on 01/16/2017. The patient was complaining of abdominal pain and inability to urinate. Gipson catheter was inserted. The patient had significant urine output. Leukocyte esterase was positive on urinalysis The patient was transferred to [facility] for insurance purposes. The patient was admitted for urinary retention, BPH, outlet obstruction, possible UTI. HOSPITAL COURSE: The patient was admitted. The patient was started on the IV fluids. Pain management was provided. Urology consult was requested. The patient was started on empiric antibiotics. Blood sugar was managed with the sliding scale of insulin. The patient was noted to have renal failure as well, likely due to the urinary outlet obstruction. Nephrology consult was requested. The patient was started on Flomax and Proscar. Renal ultrasound revealed no hydronephrosis. , Urologist subsequently seen and evaluated the patient. According to urologist, the patient had obstructive uropathy. Per urologist, the patient had a history of presumed benign prostatic hypertrophy and bladder outlet obstruction with problem urinating in the past. He presented at this time with urinary retention and Gipson was placed. Patient then accidentally dislodged his Gipson catheter, likely into his urethra and the catheter stopped draining. It was removed at the same facility, however, the staff had difficulties passing the catheter again. Urology service at [place] was called to perform cystoscopy and placement of catheter with the wire guidance. Patient was eventually transferred to [facility]. Per urologist, the patient should continue to be on Flomax and Proscar. He should be continued on ceftriaxone until urine culture finalized. At that time, he can be switched to oral medication encompassing 7 to 10 days of total antibiotic therapy. Urologist concluded , that he will see the patient in the office to further manage benign prostatic hypertrophy and urinary retention. Blood cultures were negative. Urine culture was negative. ID specialist closely followed. The patient status post ceftriaxone IV for four days, then the patient was started on oral Keflex. The patient was discharged on oral Keflex to complete the course of antibiotic. Renal parameters and electrolytes were closely monitored. Nephrotoxics were avoided. Electrolytes were replaced as needed. Renal parameters down to normal. Upon admission, BUN - 64 and creatinine -2.1. Prior to discharge, BUN - 20 and creatinine-0.8. Gipson catheter was continued. Gipson catheter was changed to the leg bag prior to discharge. Initially, the patient was unable to be discharged home. data recovery planner evaluation was done for possible SNF placement versus assessing home situation. The patient lives at home with new of two years. The patient was safe to return home with home health services. FINAL DIAGNOSES: 1. 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 Obstructive uropathy 3. acute renal failure, likely due to the bladder outlet obstruction, -resolved. 4. Intractable abdominal pain. 35 Possible urinary tract infection. DISCHARGE MEDICATIONS: See medication reconciliation list. DISCHARGE INSTRUCTIONS: The patient was discharged home with home health services. FOLLOWUP: Follow up with Dr. De La Rosa/urologist. Appointment already set up. Follow up with the primary medical doctor. Art Campa M.D. [facility] Hospital[facility] DR: JOAO JOB#: [id number] CC: STEPHON
--- NOTE | 2017-01-24 18:15 | Discharge Summary 2 SIG ---
DATE OF ADMISSION: 01/16/2017 DATE OF DISCHARGE: 01/23/2017 REASON FOR ADMISSION: 81-year-old male with a history of diabetes and BPH, presented with a chief complaint of abdominal pain and inability to urinate. The patient was initially evaluated at [facility] emergency room about a week ago. At that time, urinary retention was relieved with catheterization with significant urine output. No infection was found at that time. The patient returned to [facility] emergency room on 01/16/2017. The patient was complaining of abdominal pain and inability to urinate. Gipson catheter was inserted. The patient had significant urine output. Leukocyte esterase was positive on urinalysis The patient was transferred to [facility] for insurance purposes. The patient was admitted for urinary retention, BPH, outlet obstruction, possible UTI. HOSPITAL COURSE: The patient was admitted. The patient was started on the IV fluids. Pain management was provided. Urology consult was requested. The patient was started on empiric antibiotics. Blood sugar was managed with the sliding scale of insulin. The patient was noted to have renal failure as well, likely due to the urinary outlet obstruction. Nephrology consult was requested. The patient was started on Flomax and Proscar. Renal ultrasound revealed no hydronephrosis. , Urologist subsequently seen and evaluated the patient. According to urologist, the patient had obstructive uropathy. Per urologist, the patient had a history of presumed benign prostatic hypertrophy and bladder outlet obstruction with problem urinating in the past. He presented at this time with urinary retention and Gipson was placed. Patient then accidentally dislodged his Gipson catheter, likely into his urethra and the catheter stopped draining. It was removed at the same facility, however, the staff had difficulties passing the catheter again. Urology service at [place] was called to perform cystoscopy and placement of catheter with the wire guidance. Patient was eventually transferred to [facility]. Per urologist, the patient should continue to be on Flomax and Proscar. He should be continued on ceftriaxone until urine culture finalized. At that time, he can be switched to oral medication encompassing 7 to 10 days of total antibiotic therapy. Urologist concluded , that he will see the patient in the office to further manage benign prostatic hypertrophy and urinary retention. Blood cultures were negative. Urine culture was negative. ID specialist closely followed. The patient status post ceftriaxone IV for four days, then the patient was started on oral Keflex. The patient was discharged on oral Keflex to complete the course of antibiotic. Renal parameters and electrolytes were closely monitored. Nephrotoxics were avoided. Electrolytes were replaced as needed. Renal parameters down to normal. Upon admission, BUN - 64 and creatinine -2.1. Prior to discharge, BUN - 20 and creatinine-0.8. Gipson catheter was continued. Gipson catheter was changed to the leg bag prior to discharge. Initially, the patient was unable to be discharged home. space planner evaluation was done for possible SNF placement versus assessing home situation. The patient lives at home with new of two years. The patient was safe to return home with home health services. FINAL DIAGNOSES: 1. 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 Obstructive uropathy 3. acute renal failure, likely due to the bladder outlet obstruction, -resolved. 4. Intractable abdominal pain. 35 Possible urinary tract infection. DISCHARGE MEDICATIONS: See medication reconciliation list. DISCHARGE INSTRUCTIONS: The patient was discharged home with home health services. FOLLOWUP: Follow up with Dr. De La Rosa/urologist. Appointment already set up. Follow up with the primary medical doctor. Art Campa M.D. [facility] N[facility]: JOAO JOB#: [id number] CC: STEPHON
--- NOTE | 2017-01-24 18:15 | Discharge Summary 2 SIG ---
DATE OF ADMISSION: 01/16/2017 DATE OF DISCHARGE: 01/23/2017 REASON FOR ADMISSION: 81-year-old male with a history of diabetes and BPH, presented with a chief complaint of abdominal pain and inability to urinate. The patient was initially evaluated at [facility] emergency room about a week ago. At that time, urinary retention was relieved with catheterization with significant urine output. No infection was found at that time. The patient returned to [facility] emergency room on 01/16/2017. The patient was complaining of abdominal pain and inability to urinate. Gipson catheter was inserted. The patient had significant urine output. Leukocyte esterase was positive on urinalysis The patient was transferred to [facility] for insurance purposes. The patient was admitted for urinary retention, BPH, outlet obstruction, possible UTI. HOSPITAL COURSE: The patient was admitted. The patient was started on the IV fluids. Pain management was provided. Urology consult was requested. The patient was started on empiric antibiotics. Blood sugar was managed with the sliding scale of insulin. The patient was noted to have renal failure as well, likely due to the urinary outlet obstruction. Nephrology consult was requested. The patient was started on Flomax and Proscar. Renal ultrasound revealed no hydronephrosis. , Urologist subsequently seen and evaluated the patient. According to urologist, the patient had obstructive uropathy. Per urologist, the patient had a history of presumed benign prostatic hypertrophy and bladder outlet obstruction with problem urinating in the past. He presented at this time with urinary retention and Gipson was placed. Patient then accidentally dislodged his Gipson catheter, likely into his urethra and the catheter stopped draining. It was removed at the same facility, however, the staff had difficulties passing the catheter again. Urology service at [place] was called to perform cystoscopy and placement of catheter with the wire guidance. Patient was eventually transferred to [facility]. Per urologist, the patient should continue to be on Flomax and Proscar. He should be continued on ceftriaxone until urine culture finalized. At that time, he can be switched to oral medication encompassing 7 to 10 days of total antibiotic therapy. Urologist concluded , that he will see the patient in the office to further manage benign prostatic hypertrophy and urinary retention. Blood cultures were negative. Urine culture was negative. ID specialist closely followed. The patient status post ceftriaxone IV for four days, then the patient was started on oral Keflex. The patient was discharged on oral Keflex to complete the course of antibiotic. Renal parameters and electrolytes were closely monitored. Nephrotoxics were avoided. Electrolytes were replaced as needed. Renal parameters down to normal. Upon admission, BUN - 64 and creatinine -2.1. Prior to discharge, BUN - 20 and creatinine-0.8. Gipson catheter was continued. Gipson catheter was changed to the leg bag prior to discharge. Initially, the patient was unable to be discharged home. discharge planner evaluation was done for possible SNF placement versus assessing home situation. The patient lives at home with new of two years. The patient was safe to return home with home health services. FINAL DIAGNOSES: 1. 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 Obstructive uropathy 3. acute renal failure, likely due to the bladder outlet obstruction, -resolved. 4. Intractable abdominal pain. 35 Possible urinary tract infection. DISCHARGE MEDICATIONS: See medication reconciliation list. DISCHARGE INSTRUCTIONS: The patient was discharged home with home health services. FOLLOWUP: Follow up with Dr. De La Rosa/urologist. Appointment already set up. Follow up with the primary medical doctor. Art Campa M.D. Eleanor AlfonsoBinghamton State HospitalAdam N.P. DR: JAOO JOB#: [id number] CC: STEPHON
== END 2017-01-23 15:50 | disposition home health service (06) | DRG 725 ==
LOC: 4W 21:37
DX: N40.1 Benign prostatic hyperplasia with lower urinary tract symptoms (principal); N17.0 Acute kidney failure with tubular necrosis; N39.0 Urinary tract infection, site not specified; N13.8 Other obstructive and reflux uropathy; E11.9 Type 2 diabetes mellitus without complications; R33.8 Other retention of urine; R10.9 Unspecified abdominal pain; R31.0 Gross hematuria
CPT/HCPCS: 36415; 76775; 80048; 80053; 81001; 82962; 83036; 83735; 84100; 85025; 87040; 87086; J1815; J8499